=== PATIENT | female | born 1955 | race Caucasian/White ===

== ENCOUNTER 2023-03-29 09:37 | Outpatient (AMB) | payer MEDICARE, MEDICAID, SELFPAY ==
--- NOTE | 2023-03-29 09:45 | A.OFFVIS_ITS ---
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 Davalos for her right knee pain. The patient describes her pain as sharp and severe in nature, /10. Her pain has gotten worse over the last few years in spite of continued non operative treatments. She has done physical therapy for 12 weeks over the last 6 months which aggravated her pain. She has also tried Tylenol and anti-inflammatory medicines which gave her minimal relief. She has had multiple injections. The most recent injection gave her only temporary relief. The patient has difficulty walking even short distances because of her pain. At this point her right knee pain is interfering with her activities of daily living and her ability to sleep well through the night. Allergies amlodipine Allergy (Verified 03/29/23 09:59) Unknown empagliflozin [From Jardiance] Allergy (Verified 03/29/23 09:59) Unknown erythromycin base [From Erythrocin] Allergy (Verified 03/29/23 09:59) Unknown metformin Allergy (Verified 03/29/23 09:59) Unknown oxybutynin Allergy (Verified 03/29/23 09:59) Unknown sulfamethoxazole [From Bactrim] Allergy (Verified 03/29/23 09:59) Unknown trimethoprim [From Bactrim] Allergy (Verified 03/29/23 09:59) Unknown Medication List - Last Reconciled 03/29/23 by Allan Davalos MD candesartan 16 mg PO DAILY chlorthalidone mg PO escitalopram oxalate mg PO glipizide ER 5 mg PO DAILY metoprolol succinate ER 25 mg PO DAILY mirabegron ER (Myrbetriq) 50 mg PO DAILY omeprazole 20 mg PO DAILY rosuvastatin 40 mg PO DAILY semaglutide (Ozempic) 1 mg subcut QWEEK [facility] Social History (Updated 03/29/23 @ 09:57 by Anton Ayers) Alcohol intake: never Patient Tobacco Use Status: Never used Tobacco Physical Exam Const Other: Well-nourished well-developed very friendly female awake alert and oriented x3 in no acute distress Extrem Other: Bilateral lower extremity examination shows good capillary refill, no skin lesions noted, normal sensation light touch Right knee examination shows a minimal effusion, palpable crepitus with range of motion, pain with range of motion, range of motion from -3 degrees to 115 degrees, no instability Results Reviewed Results Reviewed: X-rays of the patient's left knee show end-stage degenerative joint disease with grade 4 [id number] arthritis, subchondral sclerosis, osteophyte formation, no acute bony abnormalities Assessment & Plan Assessment & Plan (1) Arthritis of right knee: Code(s): M17.11 - Unilateral primary osteoarthritis, right knee Plan Ms. Matute presents with progressively worsening right knee pain due to end-stage degenerative joint disease. I had a lengthy discussion with the patient regarding the treatment options. At this point she has failed continued non operative treatments. The risks and benefits of right total knee replacement surgery were discussed at length with the patient. The patient wishes to proceed with surgery. She will contact my office to pick a surgery date. She will follow-up as instructed. Feel free to call me at any time should questions regarding her orthopedic management arise. I spent 22 minutes in reviewing the patient's records and imaging studies, seeing the patient and documenting in the medical record. Orders: Orders XR knee RT 3V Today M25.561 - Pain in right knee Coding Level of Care Code Est Pt Level 2 (93904) Diagnoses Arthritis of right knee M17.11
== END 2023-03-29 10:32 | disposition home or self-care (01) ==
PROVIDERS: Visit Provider Orthopaedic Surgery
DX: M17.11 Unilateral primary osteoarthritis, right knee (principal)
CPT/HCPCS: 99212

== ENCOUNTER 2023-03-29 17:05 | Outpatient (REF) | payer MEDICARE, MEDICAID, SELFPAY ==
--- NOTE | ~2023-03-29 | XR_ITS ---
EXAMINATION: XR KNEE, RIGHT CLINICAL INFORMATION: Pain. COMPARISON: Prior radiographs, most recently 12/09/2022. TECHNIQUE: AP, lateral and sunrise views of the right knee are submitted. FINDINGS: There is mild bony demineralization. There is moderately severe asymmetric narrowing of the medial joint space compartment, and the lateral joint space compartment is well-maintained. There is moderately severe narrowing of the patellofemoral compartment. There is tricompartment peripheral osteophyte formation, most pronounced of the patellofemoral compartment. No fracture or dislocation is seen. There is a small right knee joint effusion. No foreign body is seen. XR/XR knee RT 3V IMPRESSION: 1. There is tricompartment osteoarthritic change of the right knee, most pronounced of the medial and patellofemoral joint space compartments, where degenerative change is moderately severe. 2. There is a small right knee joint effusion.
== END 2023-03-29 17:06 | disposition home or self-care (01) ==
LOC: HO.HOSX 17:05
PROVIDERS: Visit Provider Orthopaedic Surgery
DX: M17.11 Unilateral primary osteoarthritis, right knee (principal)
CPT/HCPCS: 73562; 99212

== ENCOUNTER 2023-09-27 10:04 | Outpatient (REF) | payer MEDICARE, MEDICAID, SELFPAY ==
[2023-09-27 14:55] LABS: Estimated Average Glucose 146 mg/dL; Hemoglobin A1c % 6.7 % (<6.0)
== END 2023-09-27 10:05 | disposition home or self-care (01) ==
LOC: HO.LAB 10:04
PROVIDERS: PCP Physician Assistant; Visit Provider Orthopaedic Surgery
DX: M17.11 Unilateral primary osteoarthritis, right knee (principal); E11.9 Type 2 diabetes mellitus without complications; Z79.899 Other long term (current) drug therapy
CPT/HCPCS: 36415; 83036; 99212

== ENCOUNTER 2023-09-27 10:04 | Outpatient (AMB) | payer MEDICARE, MEDICAID, SELFPAY ==
--- NOTE | 2023-09-27 10:21 | MHC.OFFVIS ---
Intake Vital Signs 09/27/23 10:24 Height 5 ft 2 in Weight 300 lb BMI 54.9 Intake Visit Reasons: Preop RT TKA 10/02/23 Intake Note: Holly is a 67 year old female who presents with complaints of progressively worsening right knee pain. The patient did undergo left total knee replacement surgery in the past. She denies any pain in her left knee. The patient describes her right knee pain as sharp and severe in nature, 04/25. Her pain has gotten worse over the last few years in spite of continued non operative treatments. She has done physical therapy for 12 weeks over the last 6 months which aggravated her pain. She has also tried Tylenol and anti-inflammatory medicines which gave her minimal relief. She has had multiple injections. The most recent injection gave her only temporary relief. The patient has difficulty walking even short distances because of her pain. At this point her right knee pain is interfering with her activities of daily living and her ability to sleep well through the night. The patient continues with her weight loss program. Allergies adhesive tape Allergy (Verified 09/27/23 10:25) Redness of Skin amlodipine Allergy (Verified 09/27/23 10:25) Nausea empagliflozin [From Jardiance] Allergy (Verified 09/27/23 10:25) Abdominal Pain erythromycin base [From Erythrocin] Allergy (Verified 09/27/23 10:25) Abdominal Pain losartan Allergy (Verified 09/27/23 10:25) Headache metformin Allergy (Verified 09/27/23 10:25) Abdominal Pain oxybutynin Allergy (Verified 09/27/23 10:25) Unknown peanut Allergy (Verified 09/27/23 10:25) Swelling sulfamethoxazole [From Bactrim] Allergy (Verified 09/27/23 10:25) Hives trimethoprim [From Bactrim] Allergy (Verified 09/27/23 10:25) Hives Medication List - Last Reconciled 09/27/23 by Allan Davalos MD albuterol sulfate 90 mcg/actuation 2 puffs inhalation QID PRN candesartan 32 mg PO DAILY cholecalciferol (vitamin D3) 10 mcg PO DAILY clotrimazole 1% 1 appl topical BID escitalopram oxalate 30 mg PO DAILY fluticasone furoate-vilanterol 100-25 mcg/dose (Breo Ellipta) 1 ea inhalation DAILY glipizide ER 5 mg PO DAILY lactobacillus combination no.4 (Probiotic) 3,000 mmu cells PO DAILY metoprolol succinate ER 25 mg PO DAILY@1700 mirabegron ER (Myrbetriq) 50 mg PO BEDTIME multivitamin 1 tab PO DAILY omeprazole 20 mg PO DAILY rosuvastatin 40 mg PO DAILY@1700 semaglutide (Ozempic) 2 mg subcut QWEEK [facility] Medical History Hard of hearing Back pain Overactive bladder Bronchitis Edema Hx of lipoma Urinary frequency Osteoporosis Osteopenia Osteoarthritis Sleep apnea Obesity, morbid, BMI 40.0-49.9 Hx of breast cancer HTN (hypertension) Hyperlipidemia GERD (gastroesophageal reflux disease) Polyneuropathy Diabetes Asthma Anxiety Depression Surgical History H/O colonoscopy History of endometrial ablation History of tubal ligation H/O removal of cyst Hx of carpal tunnel repair History of lumpectomy of left breast History of left knee replacement Social History Are you a primary medicare contact specialist to a significant other at home: No Do you presently have visiting nurse or other home services: No Alcohol intake: never Patient Tobacco Use Status: Former Tobacco user 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 , 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 Physical Exam Vital Signs: BMI result Body Mass Index 54.9 Const Other: Well-nourished well-developed very friendly female awake alert and oriented x3 in no acute distress Extrem Other: Bilateral lower extremity examination shows good capillary refill, no skin lesions noted, normal sensation light touch Right knee examination shows a minimal effusion, palpable crepitus with range of motion, pain with range of motion, range of motion from -3 degrees to 115 degrees, no instability Results Reviewed Results Reviewed: X-rays of the patient's right knee show end-stage degenerative joint disease with grade 4 [id number] arthritis, subchondral sclerosis, osteophyte formation, no acute bony abnormalities Assessment & Plan Assessment & Plan (1) Arthritis of right knee: Code(s): M17.11 - Unilateral primary osteoarthritis, right knee Plan Ms. Matute presents with progressively worsening right knee pain due to end-stage degenerative joint disease. I had a lengthy discussion with the patient regarding the treatment options. At this point she has failed continued non operative treatments. The risks and benefits of right total knee replacement surgery were discussed at length with the patient. The patient wishes to proceed with surgery. She has done well after undergoing left total knee replacement surgery in the past. services advisor will be consulted for inpatient rehabilitation at [facility] in [place] following her surgery. The patient went there after her left total knee replacement surgery. Feel free to call me at any time should questions regarding her orthopedic management arise. I spent 22 minutes in reviewing the patient's records and imaging studies, seeing the patient and documenting in the medical record. Orders: Orders Hemoglobin A1c Today E11.9 - Type 2 diabetes mellitus without complications AMB Hemoglobin A1c Today Z13.9 - Encounter for screening, unspecified Coding Level of Care Code Est Pt Level 2 (28446) Diagnoses Arthritis of right knee M17.11
[2023-09-27 10:24] VITALS: BMI 54.9
== END 2023-09-27 10:57 | disposition home or self-care (01) ==
PROVIDERS: PCP Physician Assistant; Visit Provider Orthopaedic Surgery
DX: M17.11 Unilateral primary osteoarthritis, right knee (principal)
CPT/HCPCS: 99024

== ENCOUNTER 2023-10-02 06:10 | Inpatient (IN) | payer MEDICARE, MEDICAID, SELFPAY ==
[2023-09-25 11:57] VITALS: BP 158/67; PULSE 65; RESP 18; O2SAT 95; BMI 55.0
[2023-09-25 14:15] LABS: MRSA Nasal PCR NEGATIVE (Negative); SA Nasal PCR NEGATIVE (Negative)
[2023-10-02] VITALS (15 sets, daily range): BP systolic 154–183; BP diastolic 64–92; PULSE 58–74; RESP 14–18; TEMP 36.3–36.7; O2SAT 93–99; BMI 56.3
[2023-10-02 06:53] LABS: Glucose, Whole Blood 105 mg/dL (60-115)
[2023-10-02] MEDS: Lactated Ringers 1,000 ML 100 ML IVCONT ×2 (07:07→14:20)
--- NOTE | 2023-10-02 07:10 | HO.ANESPROP2 ---
Documented by User: Aneta Churchill NP 09/25/23 12:56 HPI - Anesthesia Eval Consult details Narrative: 68yo F for Right Knee Replacement Total, 10/02/23 Cardiac cleared Medically cleared by [facility] URI late Aug. Resolved except rare dry cough No CP (some anxiety), No SOB with very minimal activity r/t knee pain Asthma. Breo daily. Rescue inhaler <1 x monthly Diabetes. FBS ~130's BMI 55 Anesthesia Pre-Procedure Meds Is the patient on any of the following meds?: Semaglutide (Ozempic) (Last dose 09/23/23) PMFSH Active Problems Active Problems: All Active Problems (Updated 09/25/23 @ 11:39 by Randa Charlton RN) Arthritis of right knee (Acute) Right knee pain (Acute) Past Medical History Medical History Hard of hearing Back pain Overactive bladder Bronchitis Edema Hx of lipoma Urinary frequency Osteoporosis Osteopenia Osteoarthritis Sleep apnea Obesity, morbid, BMI 40.0-49.9 Hx of breast cancer HTN (hypertension) Hyperlipidemia GERD (gastroesophageal reflux disease) Polyneuropathy Diabetes Asthma Anxiety Depression Family History Family history of problems with anesthesia: Unobtainable (Adopted) Surgical History Surgical History H/O colonoscopy History of endometrial ablation History of tubal ligation H/O removal of cyst Hx of carpal tunnel repair History of lumpectomy of left breast History of left knee replacement History of Problems with Anesthesia: No Social History Social History Are you a primary career representative to a significant other at home: No Do you presently have visiting nurse or other home services: No Alcohol intake: never Patient Tobacco Use Status: Former Tobacco user Use of substances other than those prescribed or required for medical reasons: No Have you been hit, kicked, punched, or otherwise hurt by someone within the past year? 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 Meds Allergies Allergy/AdvReac Type Severity Reaction Status Date / Time adhesive tape Allergy Redness of Verified 10/02/23 06:18 Skin amlodipine Allergy Nausea Verified 10/02/23 06:18 empagliflozin Allergy Abdominal Verified 10/02/23 06:18 [From Jardiance] Pain erythromycin base Allergy Abdominal Verified 10/02/23 06:18 [From Erythrocin] Pain losartan Allergy Headache Verified 10/02/23 06:18 metformin Allergy Abdominal Verified 10/02/23 06:18 Pain oxybutynin Allergy Unknown Verified 10/02/23 06:18 peanut Allergy Swelling Verified 10/02/23 06:18 sulfamethoxazole Allergy Hives Verified 10/02/23 06:18 [From Bactrim] trimethoprim [From Bactrim] Allergy Hives Verified 10/02/23 06:18 Home Medications Medication Instructions Recorded Confirmed Last Taken Type escitalopram oxalate 20 mg tablet 30 mg PO DAILY 03/29/23 10/02/23 10/02/23 History glipizide 5 mg tablet, extended 5 mg PO DAILY 03/29/23 10/02/23 10/01/23 History release 24 hr metoprolol succinate 25 mg 25 mg PO DAILY@1700 03/29/23 10/02/23 10/01/23 History tablet,extended release 24 hr mirabegron 50 mg tablet,extended 50 mg PO BEDTIME 03/29/23 10/02/23 10/01/23 History release 24 hr (Myrbetriq) omeprazole 20 mg capsule,delayed 20 mg PO DAILY 03/29/23 10/02/23 10/02/23 History release rosuvastatin 40 mg tablet 40 mg PO DAILY@1700 03/29/23 10/02/23 10/01/23 History albuterol sulfate 90 mcg/actuation 2 puff inhalation QID PRN 09/21/23 10/02/23 Unknown History aerosol inhaler Shortness Of Breath Or Wheezing clotrimazole 1 % topical cream 1 appl topical BID 09/21/23 10/02/23 09/30/23 History fluticasone furoate 100 1 ea inhalation DAILY 09/21/23 10/02/23 10/02/23 History mcg-vilanterol 25 mcg/dose inhalation powder (Breo Ellipta) lactobacillus combination no.4 3 3,000 mmu cells PO DAILY 09/21/23 10/02/23 09/18/23 History billion cell capsule (Probiotic) multivitamin 1 tab PO DAILY 09/21/23 10/02/23 10/01/23 History semaglutide 2 mg/dose (8 mg/3 mL) 2 mg subcut QWEEK 09/25/23 10/02/23 09/23/23 History subcutaneous pen injector (Ozempic) candesartan 32 mg tablet 32 mg PO DAILY 09/27/23 10/02/23 10/01/23 History cholecalciferol (vitamin D3) 10 10 mcg PO DAILY 09/27/23 10/02/23 10/01/23 History mcg (400 unit) capsule Exam Height,Weight and Vital Signs: Height 5 ft 2 in Weight 136.531 kg Last Vital Signs Pulse 65 09/25/23 11:57 Resp 18 09/25/23 11:57 BP 158/67 H 09/25/23 11:57 Pulse Ox 95 09/25/23 11:57 O2 Del Method Room Air 09/25/23 11:57 Airway Mallampati Class: I TM Dist: >3cm Neck ROM: Full Loose/Missing/Broken Teeth: Yes (Molars missing. #11 slight loose) Heart: RRR Lungs: CTAB Assessment and Plan Assessment Anesthesia Assessment: Anesthesia Plan Discussed and PAT Visit Final Anesthetic Review Family History of Problems with Anesthesia: Unobtainable (Adopted) History of Problems with Anesthesia: No Documented by User: Natalie Arana DO 10/02/23 09:09 HPI - Anesthesia Eval Consult details Narrative: 68yo F for Right Knee Replacement Total Cardiac cleared Medically cleared by [facility] URI late Aug. Resolved except rare dry cough No CP (some anxiety), No SOB with very minimal activity r/t knee pain Asthma. Breo daily. Rescue inhaler <1 x monthly Diabetes. FBS ~130's BMI 56 Anesthesia Pre-Procedure Meds If Yes to any meds - educate patient: Pt education - increased risk of aspiration PMFSH Past Medical History Medical History Hard of hearing Back pain Overactive bladder Bronchitis Edema Hx of lipoma Urinary frequency Osteoporosis Osteopenia Osteoarthritis Sleep apnea Obesity, morbid, BMI 40.0-49.9 Hx of breast cancer HTN (hypertension) Hyperlipidemia GERD (gastroesophageal reflux disease) Polyneuropathy Diabetes Asthma Anxiety Depression Surgical History Surgical History H/O colonoscopy History of endometrial ablation History of tubal ligation H/O removal of cyst Hx of carpal tunnel repair History of lumpectomy of left breast History of left knee replacement History of Problems with Anesthesia: No Social History Social History Are you a primary career representative to a significant other at home: No Do you presently have visiting nurse or other home services: No Alcohol intake: never Patient Tobacco Use Status: Former Tobacco user Use of substances other than those prescribed or required for medical reasons: No Have you been hit, kicked, punched, or otherwise hurt by someone within the past year? 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 Meds Allergies Allergy/AdvReac Type Severity Reaction Status Date / Time adhesive tape Allergy Redness of Verified 10/02/23 06:18 Skin amlodipine Allergy Nausea Verified 10/02/23 06:18 empagliflozin Allergy Abdominal Verified 10/02/23 06:18 [From Jardiance] Pain erythromycin base Allergy Abdominal Verified 10/02/23 06:18 [From Erythrocin] Pain losartan Allergy Headache Verified 10/02/23 06:18 metformin Allergy Abdominal Verified 10/02/23 06:18 Pain oxybutynin Allergy Unknown Verified 10/02/23 06:18 peanut Allergy Swelling Verified 10/02/23 06:18 sulfamethoxazole Allergy Hives Verified 10/02/23 06:18 [From Bactrim] trimethoprim [From Bactrim] Allergy Hives Verified 10/02/23 06:18 Home Medications Medication Instructions Recorded Confirmed Last Taken Type escitalopram oxalate 20 mg tablet 30 mg PO DAILY 03/29/23 10/02/23 10/02/23 History glipizide 5 mg tablet, extended 5 mg PO DAILY 03/29/23 10/02/23 10/01/23 History release 24 hr metoprolol succinate 25 mg 25 mg PO DAILY@1700 03/29/23 10/02/23 10/01/23 History tablet,extended release 24 hr mirabegron 50 mg tablet,extended 50 mg PO BEDTIME 03/29/23 10/02/23 10/01/23 History release 24 hr (Myrbetriq) omeprazole 20 mg capsule,delayed 20 mg PO DAILY 03/29/23 10/02/23 10/02/23 History release rosuvastatin 40 mg tablet 40 mg PO DAILY@1700 03/29/23 10/02/23 10/01/23 History albuterol sulfate 90 mcg/actuation 2 puff inhalation QID PRN 09/21/23 10/02/23 Unknown History aerosol inhaler Shortness Of Breath Or Wheezing clotrimazole 1 % topical cream 1 appl topical BID 09/21/23 10/02/23 09/30/23 History fluticasone furoate 100 1 ea inhalation DAILY 09/21/23 10/02/23 10/02/23 History mcg-vilanterol 25 mcg/dose inhalation powder (Breo Ellipta) lactobacillus combination no.4 3 3,000 mmu cells PO DAILY 09/21/23 10/02/23 09/18/23 History billion cell capsule (Probiotic) multivitamin 1 tab PO DAILY 09/21/23 10/02/23 10/01/23 History semaglutide 2 mg/dose (8 mg/3 mL) 2 mg subcut QWEEK 09/25/23 10/02/23 09/23/23 History subcutaneous pen injector (Ozempic) candesartan 32 mg tablet 32 mg PO DAILY 09/27/23 10/02/23 10/01/23 History cholecalciferol (vitamin D3) 10 10 mcg PO DAILY 09/27/23 10/02/23 10/01/23 History mcg (400 unit) capsule Exam Exam Date and Time: October 02, 2023 0710 Height,Weight and Vital Signs: Height 5 ft 2 in Weight 136.531 kg Last Vital Signs Pulse 65 09/25/23 11:57 Resp 18 09/25/23 11:57 BP 158/67 H 09/25/23 11:57 Pulse Ox 95 09/25/23 11:57 O2 Del Method Room Air 09/25/23 11:57 Height 5 ft 2 in Weight 139.525 kg Vital Signs Pulse Rate 65 09/25/23 11:57 Respiratory Rate 18 09/25/23 11:57 Blood Pressure 158/67 H 09/25/23 11:57 Pulse Oximetry 95 09/25/23 11:57 Oxygen Delivery Method Room Air 09/25/23 11:57 Temperature 97.3 F 10/02/23 06:45 Pulse Rate 64 10/02/23 06:45 Respiratory Rate 16 10/02/23 06:45 Blood Pressure 180/80 H 10/02/23 06:45 Pulse Oximetry 98 10/02/23 06:45 Oxygen Delivery Method Room Air 10/02/23 06:45 Airway Mallampati Class: I TM Dist: >3cm Neck ROM: Full Heart: S1S2 Assessment and Plan Assessment Anesthesia Assessment: Anesthesia Plan Discussed Final Anesthetic Review History of Problems with Anesthesia: No NPO: Yes ASA Class: III Final Preanesthetic Review: No Changes in Pt Med Stat, Meds/Allgs Chart Reviewed, Consent Obtained/Reviewed and Anes Risks/Benef Reviewed Patient Risk: Intermediate Procedure Risk: Intermediate Assessment/Block/Sedation in SS: Assess/Block/Sedation-SS Anesthetic Plan Anesthetic Plan: MAC:, Spinal, Regional Block (right adductor canal and right ipack block) and Agree w/ Assess. and Plan Disposition: Standard PACU
[2023-10-02] MEDS: vancomycin/NS 2,000 MG/500 ML PLAST..BAG 250 MG IV ×2 (07:11→18:30)
--- NOTE | 2023-10-02 07:28 | PC.NURSE ---
Patient has past allergy to Erythromycin Base PO, causing severe abdominal pain. IV Vancomycin ordered preop. This nurse spoke to Michaelle in the pharmacy who stated that there shouldn't be a problem with the IV Vanco, but to keep a close eye on the patient. Dr. Davalos made aware and agrees with plan. Patient aware. IV Vancomycin started in preop. OR nurse made aware.
--- NOTE | 2023-10-02 10:41 | P.BOP_ITS ---
Brief Operative Note Date of Service: 10/02/23 Pre-op diagnosis: Right knee degenerative joint disease Post-op diagnosis: same Procedure: Right total knee arthroplasty Implants: [place] [employer] cemented posterior stabilized total knee arthroplasty with a femoral component size 4 right, universal tibial component size 5, tibial stem size 12 mm in diameter by 50 mm in length, polyethylene liner size 5 with 9 mm of thickness, an asymmetric patellar component size 32 with 10 mm of thickness Surgeon: Allan Davalos MD Anesthesia: regional and spinal Was an Securities Compliance Examiner used for this Procedure?: Yes Securities Compliance Examiner: Maryann Alston Estimated blood loss (mL): 200 Pathology: other (Bony fragments from the right femur, tibia and patella) Condition: stable Disposition: PACU
--- NOTE | 2023-10-02 10:43 | P.OP_ITS ---
Operative Note Operative Note Date of Service: 10/02/23 Narrative: After the patient was identified as Holly Matute and her right knee was initialed by myself the patient was brought to the holding area where a right leg nerve block was performed by the anesthesiologist in routine fashion. The patient was then brought to the operating room where conscious sedation and spinal anesthesia were performed by the anesthesiologist in routine fashion. Because of the patient's diabetes and obesity she was given both IV Ancef and IV vancomycin preoperatively for infection prophylaxis. The patient's right lower extremity was prepped and draped in sterile fashion. A formal time-out was completed. The patient's right knee was placed onto a small bump to produce 30? of knee flexion during exposure. A #10 scalpel blade was used to make a midline incision extending 1 handbreadth proximal and distal to the patella. A second #10 scalpel blade was used to dissect the subcutaneous tissues down to the extensor mechanism. The subcutaneous flaps were maintained as thick as possible . A medial parapatellar arthrotomy was then performed using a #10 scalpel blade. The arthrotomy was begun just medial to the patellar tendon. The arthrotomy was continued 1 cm medial to the patella and then 5 mm into the medial aspect of the quadriceps tendon. The infrapatellar fat pad was partially excised to help with exposure. The soft tissue retinaculum was raised one-half of the way around the medial aspect of the proximal tibia. The patella was everted and the knee was flexed to 90?. There was no injury to the patellar tendon or its insertion onto the tibial tubercle. A drill bit was introduced into the distal aspect of the femur with a starting point 1 cm anterior to the origin of the posterior cruciate ligament. The intramedullary alignment juvencio was put into place. The distal alignment guide was set for a 5 degree valgus cut. The distal cutting block was put into place and was held with 4 pins. The intramedullary alignment juvencio was removed. Soft tissues were retracted in the distal femoral cut was made using a sagittal saw. The distal aspect of the femur measured to be a size 4 right component. Two drill holes were placed into the distal aspect of the femur marking 3? of external rotation. The distal cutting block was impacted into place and was held with 2 pins. Soft tissues were retracted and the 4 distal femoral cuts were made using a sagittal saw. Fi nal notching and drilling of the distal aspect of the femur were performed in routine fashion. The trial femoral component was impacted into place. The knee was taken through a full range of motion. The patella tracked well. The patella was everted and the knee was flexed to 90?. The trial component was removed and our attention was directed to the proximal tibia. The medial and lateral menisci were removed using a #10 scalpel blade. A small rim of the medial meniscus was left intact to help prevent injury to the medial collateral ligament. A drill bit was then introduced into the proximal tibia with a starting point midway from medial to lateral and one-third of the way posteriorly. The intramedullary alignment juvencio was put into place. The proximal tibial cutting guide was placed over the alignment juvencio in line with the 2nd toe. The guide was held in place using 3 pins. The intramedullary alignment juvencio was removed. Soft tissues were retracted and the proximal tibial cut was made using a sagittal saw. Inspection of the proximal tibia showed a bony cyst measuring 5 mm x 5 mm x 10 mm along the medial tibial plateau. Because of the presence of the cyst and the patient's obesity the decision was made to use a tibial stem to help prevent loosening of the tibial component in the future. The proximal tibia measured to be a size 5 component. The tibial tray was put into place with a 9 mm liner. The femoral component was impacted into place. The knee was taken through a full range of motion. There was full flexion and full extension. There was no instability with varus or valgus stress testing with the knee in flexion or extension. The patella tracked well with no medially directed force. The rotation of the tibial tray was marked using electrocautery with the knee in extension. The patella was everted and the knee was flexed to 90?. All trial components were removed. The tibial tray was placed onto the proximal tibia in line with the electrocautery erika. The tray was held in place using 3 pins. Final broaching and drilling of the proximal tibia were performed in routine fashion. The trial liner and trial femoral component were put into place. The knee was brought into extension and our attention was directed to the patella. The patella measured 25 mm in thickness. The patellar resection guide was set for a 10 mm resection. Soft tissues were retracted and the patella cut was made using a sagittal saw. The remaining patella measured 15 mm in thickness. The undersurface of the patella was measured to be a size 32 asymmetric component. Three drill holes were placed into the undersurface of the patella in routine fashion. The trial component was put into place. The knee was taken through a full range of motion. The patella tracked well. The patella was everted and the knee was flexed to 90?. All trial components were removed. The knee was once again brought into extension and placed onto a small bump. The knee joint was irrigated with copious amounts of normal saline solution via pulse lavage while the cement was mixed. The patella was everted and the knee was flexed to 90?. A small amount of cement was placed along the posterior aspects of the tibial and femoral components. Cement was then pressurized into the proximal tibia. The tibial component was impacted into place. Any excess cement was removed. The polyethylene liner was then impacted into place. Cement was then pressurized into the distal aspect of the femur. A small amount of cement was placed into the intramedullary canal to help reduce b leeding. The femoral component was impacted into place. Any excess cement was removed. The knee was then brought into extension. Cement was pressurized into the undersurface of the patella. The patellar component was put into place and was held with a patella clamp. Any excess cement was removed. Once the cement had hardened the patellar clamp was removed. The knee was taken through a full range of motion. There was full flexion and extension. There was no instability with varus or valgus stress testing with the knee in flexion or extension. The patella tracked well with no medially directed force. The knee joint was irrigated with copious amounts of normal saline solution via pulse lavage. Any significant bleeding vessels were coagulated. The patient's right knee was placed onto a small bump. The arthrotomy was closed with #2 Ethibond [id number] interrupted suture as well as #1 Vicryl [id number] interrupted suture. The wound was once again irrigated. The subcutaneous tissues were closed with 0 Vicryl and 2-0 Vicryl interrupted sutures. The skin was closed with skin pam. Dry sterile dressing and Shadi bandages were placed over the patient's right knee. The patient was awake and alert. The patient was transferred to the recovery room in stable condition.
--- NOTE | 2023-10-02 13:00 | P.CONIM_ITS ---
History of Present Illness Data of Consult Service Date: 10/02/23 Primary Care Provider: GUILLAUME Hayden HPI Reason for consult: dm 68F PMH HTN, T2DM,?morbid obesity, HLD, GERD, asthma, anxiety/depression,?NAZANIN?u sing CPAP, peripheral edema, history of left breast cancer in 2019 status post lumpectomy, osteoporosis, and urinary frequency admitted s/p right knee arthroplasty for osteoarthritis. medical consult requested to manage comorbidities. Review of Systems Review of Systems: Yes all other systems are reviewed and are negative [facility] Medical History Hard of hearing Back pain Overactive bladder Bronchitis Edema Hx of lipoma Urinary frequency Osteoporosis Osteopenia Osteoarthritis Sleep apnea Obesity, morbid, BMI 40.0-49.9 Hx of breast cancer HTN (hypertension) Hyperlipidemia GERD (gastroesophageal reflux disease) Polyneuropathy Diabetes Asthma Anxiety Depression Surgical History H/O colonoscopy History of endometrial ablation History of tubal ligation H/O removal of cyst Hx of carpal tunnel repair History of lumpectomy of left breast History of left knee replacement Social History Are you a primary career services assistant to a significant other at home: No Do you presently have visiting nurse or other home services: No Alcohol intake: never Patient Tobacco Use Status: Former Tobacco user Use of substances other than those prescribed or required for medical reasons: No Have you been hit, kicked, punched, or otherwise hurt by someone within the past year? 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 Meds Allergies Allergy/AdvReac Type Severity Reaction Status Date / Time adhesive tape Allergy Redness of Verified 10/02/23 06:18 Skin amlodipine Allergy Nausea Verified 10/02/23 06:18 empagliflozin Allergy Abdominal Verified 10/02/23 06:18 [From Jardiance] Pain erythromycin base Allergy Abdominal Verified 10/02/23 06:18 [From Erythrocin] Pain losartan Allergy Headache Verified 10/02/23 06:18 metformin Allergy Abdominal Verified 10/02/23 06:18 Pain oxybutynin Allergy Unknown Verified 10/02/23 06:18 peanut Allergy Swelling Verified 10/02/23 06:18 sulfamethoxazole Allergy Hives Verified 10/02/23 06:18 [From Bactrim] trimethoprim [From Bactrim] Allergy Hives Verified 10/02/23 06:18 Active Medications: Current Medications Acetaminophen (Acetaminophen 325 Mg Tablet) 650 mg PO Q6H PRN PRN Reason: Pain, Mild (Pain Scale 1-3) Albuterol Sulfate (Albuterol Sulfate 90 Mcg 8 Gm Inhaler) 2 puff INHALE QID PRN PRN Reason: Shortness Of Breath Or Wheezing Aspirin (Aspirin 325 Mg Tablet) 325 mg PO BID LATONYA Celecoxib (Celecoxib 200 Mg Capsule) 200 mg PO BID LATONYA Clotrimazole (Clotrimazole 1 % Cream 15 Gm Tube) 1 appl TOPICAL BID LATONYA; Protocol Docusate Sodium (Docusate Sodium 100 Mg Capsule) 100 mg PO BID [facility] Escitalopram Oxalate (Escitalopram Oxalate 10 Mg Tablet) 30 mg PO DAILY [facility] Fluticasone/Vilanterol (Fluticasone/Vilanterol 100/25 Blst.W.Dev) puff INHALE DAILY [facility] Gabapentin (Gabapentin 100 Mg Capsule) 100 mg PO BEDTIME [facility]ONYA Glipizide (Glipizide Xl 5 Mg Tab.Er.24) 5 mg PO DAILY [facility] Hydromorphone HCl (Hydromorphone Hcl 0.5 Mg/0.5 Ml Syringe) 0.25 mg IVPUSH Q5M PRN; Protocol PRN Reason: Pain, Severe (Pain Scale 7-10) Stop: 10/02/23 15:09 Hydromorphone HCl (Hydromorphone Hcl 0.5 Mg/0.5 Ml Syringe) 0.25 mg IVPUSH Q4H PRN; Protocol PRN Reason: Pain, Severe (Pain Scale 7-10) Hydromorphone HCl (Hydromorphone Hcl 0.5 Mg/0.5 Ml Syringe) 0.5 mg IVPUSH Q4H PRN; Protocol PRN Reason: Pain, Severe (Pain Scale 7-10) Lactated Ringer's (Lr) 1,000 mls @ 100 mls/hr IVCONT .Q10H [facility] Cefazolin Sodium 3 gm/ Sodium (Chloride) 100 mls @ 200 mls/hr IV POSTOP ONE Stop: 10/02/23 13:23 Vancomycin HCl (Vancomycin/Ns) 2,000 mg in 500 mls @ 250 mls/hr IV Q8H [facility] Methocarbamol (Methocarbamol 500 Mg Tablet) 500 mg PO TID [facility] Metoprolol Succinate (Metoprolol Succinate Er 25 Mg Tab.Er.24h) 25 mg PO DAILY@1700 [facility]; Protocol Mirabegron (Mirabegron 50 Mg Tab.Er.24h) 50 mg PO BEDTIME [facility] Multivitamins/Vitamin C (Multivitamin Tablet) 1 tab PO DAILY [facility] Non-Formulary Medication (Candesartan) 32 mg PO DAILY [facility] Non-Formulary Medication (Lactobacillus Combination No.4 [Probiotic]) 3,000 mmu cells PO DAILY [facility] Non-Formulary Medication (Rosuvastatin) 40 mg PO DAILY@1700 [facility] Non-Formulary Medication (Semaglutide [Ozempic]) 2 mg SUBCUT QWEEK [facility] Omeprazole (Omeprazole 20 Mg Capsule.Dr) 20 mg PO DAILY [facility] Ondansetron HCl (Ondansetron Hcl 4 Mg/2 Ml Vial) 4 mg IVPUSH ONCE PRN PRN Reason: Nausea and Vomiting Stop: 10/02/23 15:11 Ondansetron HCl (Ondansetron Hcl 4 Mg/2 Ml Vial) 4 mg IVPUSH Q8H PRN PRN Reason: Nausea and Vomiting Oxycodone HCl (Oxycodone Hcl Immed Release 5 Mg Tablet) 5 mg PO Q4H PRN PRN Reason: Pain, Moderate(Pain Scale 4-6) Oxycodone HCl (Oxycodone Hcl Er 10 Mg Tab.Er.12h) 10 mg PO BID [facility] Oxycodone HCl (Oxycodone Hcl Immed Release 5 Mg Tablet) 10 mg PO Q4H PRN PRN Reason: Pain, Moderate(Pain Scale 4-6) Pharmacy Consult (Consult Rx Vancomycin Dosing) 1 each MISCELLANE DAILY PRN PRN Reason: Consult order Stop: 10/02/23 23:55 Sodium Chloride (0.9 % Sodium Chloride Flush 3 Ml Syringe) 3 ml IVFLUSH QSHIFT [facility] Vitamin D (Cholecalciferol (Vitamin D3) 10 Mcg Tablet) 10 mcg PO DAILY [facility] Home Medications Medication Instructions Recorded Confirmed Last Taken Type escitalopram oxalate 20 mg tablet 30 mg PO DAILY 03/29/23 10/02/23 10/02/23 History glipizide 5 mg tablet, extended 5 mg PO DAILY 03/29/23 10/02/23 10/01/23 History release 24 hr metoprolol succinate 25 mg 25 mg PO DAILY@1700 03/29/23 10/02/23 10/01/23 History tablet,extended release 24 hr mirabegron 50 mg tablet,extended 50 mg PO BEDTIME 03/29/23 10/02/23 10/01/23 History release 24 hr (Myrbetriq) omeprazole 20 mg capsule,delayed 20 mg PO DAILY 03/29/23 10/02/23 10/02/23 History release rosuvastatin 40 mg tablet 40 mg PO DAILY@1700 03/29/23 10/02/23 10/01/23 History albuterol sulfate 90 mcg/actuation 2 puff inhalation QID PRN 09/21/23 10/02/23 Unknown History aerosol inhaler Shortness Of Breath Or Wheezing clotrimazole 1 % topical cream 1 appl topical BID 09/21/23 10/02/23 09/30/23 History fluticasone furoate 100 1 ea inhalation DAILY 09/21/23 10/02/23 10/02/23 History mcg-vilanterol 25 mcg/dose inhalation powder (Breo Ellipta) lactobacillus combination no.4 3 3,000 mmu cells PO DAILY 09/21/23 10/02/23 09/18/23 History billion cell capsule (Probiotic) multivitamin 1 tab PO DAILY 09/21/23 10/02/23 10/01/23 History semaglutide 2 mg/dose (8 mg/3 mL) 2 mg subcut QWEEK 09/25/23 10/02/23 09/23/23 History subcutaneous pen injector (Ozempic) candesartan 32 mg tablet 32 mg PO DAILY 09/27/23 10/02/23 10/01/23 History cholecalciferol (vitamin D3) 10 10 mcg PO DAILY 09/27/23 10/02/23 10/01/23 History mcg (400 unit) capsule Physical Exam Vital Signs and Narrative: Vital Signs: Last Vital Signs Temp 97.5 F 10/02/23 12:45 Pulse 63 10/02/23 12:45 Resp 15 10/02/23 12:45 BP 167/76 H 10/02/23 12:45 Pulse Ox 94 10/02/23 12:45 O2 Del Method Room Air 10/02/23 12:45 O2 Flow Rate 2 10/02/23 11:45 BMI result Body Mass Index 56.3 General: AO X 3, no acute distress Resp: CTA bilateral, no accessory muscles used CVS: S1,S2,RRR GI: soft, non tender, non distended Neuro: motor grossly intact, alert Psych: appropriate affect, appropriate insight Results Labs Labs: Laboratory Results - last 24 hr 10/02/23 06:47 POC Glucose 105 Assessment and Plan (1) Diabetes: Status: Acute Plan 68F PMH HTN, T2DM,?morbid obesity, HLD, GERD, asthma, anxiety/depression,?NAZANIN?using CPAP, peripheral edema, history of left breast cancer in 2019 status post lumpectomy, osteoporosis, and urinary frequency admitted s/p right knee arthroplasty for osteoarthritis OA s/p right knee arthroplasty management per primary team DM continue glipizide monitor poc, insulin sliding scale morbid obesity weight loss recommended NAZANIN cpap at night htn metoprolol mood disorder lexapro dvt prophylaxis - asa bid full code thank you for consult, will sign off, please recall if needed
--- NOTE | 2023-10-02 13:11 | PC.NURSE ---
Dr. Davalos made aware that patient only received 2 grams of preop Cefazolin, not 3 grams. Orders in for both of these doses. MD aware, No new orders at this time.
[2023-10-02 13:27] LABS: MRSA Nasal PCR NEGATIVE (Negative); SA Nasal PCR NEGATIVE (Negative)
[2023-10-02] MEDS: oxyCODONE HCl ER 10 MG TAB.ER.12H PO ×2 (13:31→23:14)
[2023-10-02] MEDS: oxyCODONE HCl Immed Release 5 MG TABLET 10 MG PO ×2 (13:31→17:58)
[2023-10-02] MEDS: Celecoxib 200 MG CAPSULE PO ×2 (13:31→20:43)
[2023-10-02] MEDS: methocarbamoL 500 MG TABLET PO ×2 (13:31→20:43)
[2023-10-02] MEDS: Docusate Sodium 100 MG CAPSULE PO ×2 (13:31→20:43)
[2023-10-02] MEDS: Acetaminophen 325 MG TABLET 650 MG PO (13:31)
[2023-10-02 15:54] LABS: Glucose, Whole Blood 187 mg/dL (60-115)
[2023-10-02] MEDS: ceFAZolin Sodium 3 GM in 0.9 % Sodium Chloride 100 ML IV (16:55)
[2023-10-02] MEDS: Aspirin 325 MG TABLET PO (17:01)
[2023-10-02] MEDS: Metoprolol Succinate ER 25 MG TAB.ER.24H PO (17:03)
[2023-10-02] MEDS: Multivitamin TABLET 1 TAB PO (17:05)
[2023-10-02] MEDS: Cholecalciferol (Vitamin D3) 10 MCG TABLET PO (17:07)
[2023-10-02] MEDS: Insulin Lispro 100 UNIT/ML 3 ML VIAL SUBCUT ×2 (17:19→20:50)
[2023-10-02] MEDS: Mirabegron 50 MG TAB.ER.24H PO (19:39)
[2023-10-02] MEDS: Gabapentin 100 MG CAPSULE PO (19:39)
[2023-10-02] MEDS: HYDROmorphone HCl 0.5 MG/0.5 ML SYRINGE 0.25 MG IVPUSH (19:39)
[2023-10-02 20:43] LABS: Glucose, Whole Blood 189 mg/dL (60-115)
[2023-10-03] VITALS (8 sets, daily range): BP systolic 140–149; BP diastolic 60–68; PULSE 69–80; RESP 16–18; TEMP 36.2–36.8; O2SAT 93–96
[2023-10-03] MEDS: HYDROmorphone HCl 0.5 MG/0.5 ML SYRINGE 0.25 MG IVPUSH ×2 (01:43→08:00)
[2023-10-03] MEDS: Lactated Ringers 1,000 ML 100 ML IVCONT ×2 (03:04→14:44)
[2023-10-03 06:04] LABS: MANUAL DIFF FLAG NO
[2023-10-03 06:11] LABS: Hematocrit 34.4 % (37.0-47.0); Hemoglobin 11.3 g/dl (12.0-16.0); Mean Corpuscular HGB Conc 32.8 g/dl (31.0-35.0); Mean Corpuscular Hemoglobin 28.4 pg (27.0-33.0); Mean Corpuscular Volume 86.4 fL (80.0-98.0); Platelet Count 194 X10*3/uL (160-400); Red Blood Count 3.98 X10*6/uL (4.20-5.50); White Blood Count 10.4 X10*3/uL (4.8-10.8)
[2023-10-03 06:12] LABS: Basophils Percent Auto 0.2 % (0-2); Eosinophils Percent Auto 0.2 % (0-4); Hematocrit 33.6 % (37.0-47.0); Hemoglobin 11.1 g/dl (12.0-16.0); Imm Gran Abs Auto 0.05 X10*3/uL (0.00-0.03); Imm Gran Pct Auto 0.5 % (0.0-0.4); Lymphocytes Absolute Auto 2.2 X10*3/uL (1.2-4.9); Lymphocytes Percent Auto 20.3 % (20-40); Mean Corpuscular Hemoglobin 28.4 pg (27.0-33.0); Mean Corpuscular Volume 85.9 fL (80.0-98.0); Mean Platelet Volume 11.1 fL (9.4-12.3); Monocytes Absolute Auto 1.1 X10*3/uL (0.1-1.2); Monocytes Percent Auto 10.3 % (2-11); Neutrophils Absolute Auto 7.4 x10*3/uL (2.0-8.3); Neutrophils Percent Auto 68.5 % (45-73); Platelet Count 195 X10*3/uL (160-400); Red Blood Count 3.91 X10*6/uL (4.20-5.50); White Blood Count 10.8 X10*3/uL (4.8-10.8)
[2023-10-03 06:23] LABS: Anion Gap 10 (12-20); Blood Urea Nitrogen 17 mg/dL (9-16); Calcium 8.5 mg/dL (8.4-10.2); Carbon Dioxide 25 mmol/L (22-29); Chloride 110 mmol/L (96-108); Creatinine Clr Calc Pharmacy 77.3; Estimated Glomerular Filt Rate 57; Glucose Fasting 161 mg/dL (60-99); Potassium 3.7 mmol/L (3.3-5.1); Sodium 141 mmol/L (135-145)
[2023-10-03 07:50] LABS: Glucose, Whole Blood 143 mg/dL (60-115)
[2023-10-03] MEDS: oxyCODONE HCl ER 10 MG TAB.ER.12H PO ×2 (07:58→20:11)
[2023-10-03] MEDS: Cholecalciferol (Vitamin D3) 10 MCG TABLET PO (07:58)
[2023-10-03] MEDS: Aspirin 325 MG TABLET PO ×2 (07:59→20:12)
[2023-10-03] MEDS: Celecoxib 200 MG CAPSULE PO ×2 (07:59→20:11)
[2023-10-03] MEDS: Multivitamin TABLET 1 TAB PO (07:59)
[2023-10-03] MEDS: Escitalopram Oxalate 10 MG TABLET 30 MG PO (07:59)
[2023-10-03] MEDS: Valsartan 160 MG TABLET PO (07:59)
[2023-10-03] MEDS: methocarbamoL 500 MG TABLET PO ×3 (07:59→20:12)
[2023-10-03] MEDS: Docusate Sodium 100 MG CAPSULE PO ×2 (07:59→20:12)
[2023-10-03] MEDS: Omeprazole 20 MG CAPSULE.DR PO (08:00)
[2023-10-03] MEDS: Fluticasone/Vilanterol 100/25 BLST.W.DEV 1 PUFF INHALE (08:15)
[2023-10-03] MEDS: Acetaminophen 325 MG TABLET 650 MG PO (09:03)
[2023-10-03] MEDS: glipiZIDE XL 2.5 MG TAB.ER.24 5 MG PO (09:03)
[2023-10-03 11:24] LABS: Glucose, Whole Blood 180 mg/dL (60-115)
[2023-10-03] MEDS: Insulin Lispro 100 UNIT/ML 3 ML VIAL SUBCUT (11:47)
--- NOTE | 2023-10-03 12:08 | HO.POSTANES ---
Post Anesthesia Evaluation Post Anesthesia Evaluation Date of Service: 10/03/23 Vital Signs: Vital Signs Temp Pulse Resp BP Pulse Ox O2 Del Method 10/03/23 09:09 95 Room Air 10/03/23 08:18 80 18 10/03/23 08:00 18 10/03/23 07:42 97.8 F 69 18 149/68 H 96 Room Air 10/03/23 03:51 97.2 F 78 18 140/60 H 95 Room Air 10/03/23 03:16 97.2 F 71 18 140/60 H 93 Room Air Anesthesia: Spinal and Nerve Block Mental Status: Awake Pain Control: Satisfactory (pain 7/10) Nausea/Vomiting: None Hydration: Adequate Anesthesia-Related Issues: No Anes. Related Issues
[2023-10-03] MEDS: oxyCODONE HCl Immed Release 5 MG TABLET 10 MG PO ×2 (13:08→17:08)
--- NOTE | 2023-10-03 13:55 | MHC.CM.PN ---
IMM 10/03/23 DELIVERED TO BEDSIDE, PT S/P RTKA, PT REPORTS SHE LIVES W/ JUAN J, HAS A 4PRONGED CANE, FWW, ROLLATER, TOILET RISER AND SHOWER CHAIR AND GRAB BARS, PT IS INDEP W/CARE AT BASELINE AND DENIES HAVING HOME SERVICES, PT REPORT SHE WOULD LIKE TO GO TO [facility] HOWEVER PER PT SHE WILL LIKELY BE ABLE TO DC HOME W/SERVICES, P.T. WILL REVIST W/PT IN AM. PT VERIFIES PCP ON FILE IS CORRECT AND HAS BEEN EDUCATED ON AND COMPLETED A HCP NAMING HER JUAN J [phone] HER HCA AND HER DTR MALDONADO [phone] HER ALTERNATE, COPY UPLOADED TO [facility] AND PLACED IN PAPER CHART. ANTIC DC TOMORROW 10/02 HOME W/NEW [facility] AND FAMILY FOR TRANSPORT
--- NOTE | 2023-10-03 14:21 | P.PNOP_ITS ---
Subjective Subjective Date of Service: 10/03/23 Interval history: POD 1 s/p RT TKA no overnight events resting in bed Physical Exam Vital Signs: Vital Signs: Last Vital Signs Temp 97.8 F 10/03/23 07:42 Pulse 80 10/03/23 08:18 Resp 18 10/03/23 08:18 BP 149/68 H 10/03/23 07:42 Pulse Ox 95 10/03/23 09:09 O2 Del Method Room Air 10/03/23 09:09 O2 Flow Rate 2 10/02/23 11:45 BMI result Body Mass Index 56.3 Const: General: cooperative, healthy appearing and no acute distress Resp: Effort & Inspection: normal respiratory effort and able to speak in complete sentences Cardio: Rate: regular rate Peripheral pulses: Peripheral pulses 2+ throughout GI: Palpation (GI): Soft to palpation Skin: General skin exam: no rashes or lesions noted Extrem: Other: incision clean dry and intact. [place] intact. No erythema or joint effusion. Calf supple nontender. Neurovascularly intact. Procedures Date of Service Date of Service: 10/03/23 Progress Note: A&P Assessment and plan (1) Status post total right knee replacement: Status: Acute Assessment and Plan: * Continue pain mgmnt * Begin Aspirin for dvt ppx * begin PT for RT TKA * Dispo planning-Pending PT eval, pain mgmnt Need for continued inpatient stay: PT eval Time Spent With Patient Time: Total time managing care of this patient today ____ minutes. Quality Stroke Does the patient have a stroke diagnosis?: No VTE Prior VTE?: No VTE Risk Level:: Surgical - very high VTE Device Contraindication: N/A - Device Ordered VTE Drug Contraindication: N/A - Med Ordered
--- NOTE | 2023-10-03 14:24 | P.DS_ITS ---
DS: Providers Provider Date of Service: 10/03/23 Date of admission: 10/02/23 06:10 Primary care physician: GUILLAUME Hayden Consults: 10/02/23 12:54 Consult to Hospitalist Routine Comment: Consulting Provider: Hospitalist Reason For Exam: routine medical management DMII DS: Diagnosis Discharge Diagnosis (1) Status post total right knee replacement: Status: Acute DS: Summary Hospital Course Hospital Course: The patient underwent a successful Right total knee arthroplasty on 10/02/[address] Davalos, was transferred to PACU and then to the floor to recover. During their stay, their vitals were stable. Labs were unremarkable, H/H 10.1/31.1. POD 1 she was started on ASA for DVT ppx, they also received Physical Therapy services twice a day. Physical therapy should include gait training, ROM to tolerance and quad strength. She is WBAT. Prior to discharge, incision clean dry and intact,. The Aquacel dressing should remain intact and dry at all times. Any concerns with the dressing, please contact orthopedic office. No showering. The plan is to be discharged home with vna Time Attestation Discharge Coordination Time (in mins): 30 Quality: Safe Use of Opioids Does Pt have an Active Cancer Diagnosis on the Problem List?: No Quality: Stroke Does the patient have a stroke diagnosis?: No Physical Exam Vital Signs: Vital Signs: Last Vital Signs Temp 97.8 F 10/03/23 07:42 Pulse 80 10/03/23 08:18 Resp 18 10/03/23 08:18 BP 149/68 H 10/03/23 07:42 Pulse Ox 95 10/03/23 09:09 O2 Del Method Room Air 10/03/23 09:09 O2 Flow Rate 2 10/02/23 11:45 BMI result Body Mass Index 56.3 DS: Data Data Completed and Pending Pending studies at discharge: Pending at discharge 10/02/23 08:56 Surgical [PTH] Routine Labs on day of discharge: Laboratory Results - last 24 hr 10/02/23 10/02/23 10/03/23 15:48 20:25 05:38 WBC 10.4 RBC Hgb Hct MCV MCH MCHC RDW Plt Count MPV Immature Gran % (Auto) Neut % (Auto) Lymph % (Auto) Reagan % (Auto) Eos % (Auto) Baso % (Auto) Lymph # (Auto) Reagan # (Auto) Eos # (Auto) Baso # (Auto) Abs Immat Gran (auto) Absolute Neuts (auto) Absolute Nucleated RBC Nucleated RBC % (auto) Sodium Potassium Chloride Carbon Dioxide Anion Gap BUN Creatinine Estim Creat Clear Calc Estimated GFR POC Glucose 187 H 189 H Fasting Glucose Calcium 10/03/23 10/03/23 10/03/23 05:38 05:38 05:38 WBC 10.8 RBC 3.98 L 3.91 L Hgb 11.3 L 11.1 L Hct 34.4 L MCV MCH MCHC RDW Plt Count MPV Immature Gran % (Auto) Neut % (Auto) Lymph % (Auto) Reagan % (Auto) Eos % (Auto) Baso % (Auto) Lymph # (Auto) Reagan # (Auto) Eos # (Auto) Baso # (Auto) Abs Immat Gran (auto) Absolute Neuts (auto) Absolute Nucleated RBC Nucleated RBC % (auto) Sodium Potassium Chloride Carbon Dioxide Anion Gap BUN Creatinine Estim Creat Clear Calc Estimated GFR POC Glucose Fasting Glucose Calcium 10/03/23 10/03/23 10/03/23 05:38 05:38 05:38 WBC RBC Hgb Hct 33.6 L MCV 86.4 85.9 MCH 28.4 28.4 MCHC 32.8 RDW Plt Count MPV Immature Gran % (Auto) Neut % (Auto) Lymph % (Auto) Reagan % (Auto) Eos % (Auto) Baso % (Auto) Lymph # (Auto) Reagan # (Auto) Eos # (Auto) Baso # (Auto) Abs Immat Gran (auto) Absolute Neuts (auto) Absolute Nucleated RBC Nucleated RBC % (auto) Sodium Potassium Chloride Carbon Dioxide Anion Gap BUN Creatinine Estim Creat Clear Calc Estimated GFR POC Glucose Fasting Glucose Calcium 10/03/23 10/03/23 10/03/23 05:38 05:38 05:38 WBC RBC Hgb Hct MCV MCH MCHC 33.0 RDW 14.0 14.0 Plt Count 194 195 MPV 11.0 Immature Gran % (Auto) Neut % (Auto) Lymph % (Auto) Reagan % (Auto) Eos % (Auto) Baso % (Auto) Lymph # (Auto) Reagan # (Auto) Eos # (Auto) Baso # (Auto) Abs Immat Gran (auto) Absolute Neuts (auto) Absolute Nucleated RBC Nucleated RBC % (auto) Sodium Potassium Chloride Carbon Dioxide Anion Gap BUN Creatinine Estim Creat Clear Calc Estimated GFR POC Glucose Fasting Glucose Calcium 10/03/23 10/03/23 10/03/23 05:38 05:38 05:38 WBC RBC Hgb Hct MCV MCH MCHC RDW Plt Count MPV 11.1 Immature Gran % (Auto) 0.5 H Neut % (Auto) 68.5 Lymph % (Auto) 20.3 Reagan % (Auto) 10.3 Eos % (Auto) 0.2 Baso % (Auto) 0.2 Lymph # (Auto) 2.2 Reagan # (Auto) 1.1 Eos # (Auto) 0.0 Baso # (Auto) 0.0 Abs Immat Gran (auto) 0.05 H Absolute Neuts (auto) 7.4 Absolute Nucleated RBC 0.000 0.000 Nucleated RBC % (auto) 0.0 0.0 Sodium 141 Potassium 3.7 Chloride 110 H Carbon Dioxide 25 Anion Gap 10 L BUN 17 H Creatinine 0.97 Estim Creat Clear Calc 77.3 Estimated GFR 57 POC Glucose Fasting Glucose 161 H Calcium 8.5 10/03/23 10/03/23 07:41 11:15 WBC RBC Hgb Hct MCV MCH MCHC RDW Plt Count MPV Immature Gran % (Auto) Neut % (Auto) Lymph % (Auto) Reagan % (Auto) Eos % (Auto) Baso % (Auto) Lymph # (Auto) Reagan # (Auto) Eos # (Auto) Baso # (Auto) Abs Immat Gran (auto) Absolute Neuts (auto) Absolute Nucleated RBC Nucleated RBC % (auto) Sodium Potassium Chloride Carbon Dioxide Anion Gap BUN Creatinine Estim Creat Clear Calc Estimated GFR POC Glucose 143 H 180 H Fasting Glucose Calcium Discharge Plan Discharge Anticipated Discharge Date/Time: 10/05/23 09:33 Patient Disposition: Xfer SNF Discharge Diagnosis: LT TKA Referrals: [facility] [Outside] - 1 Day (SHORT TERM REHAB) Maryann Alston PA-C [Physician Dairy Quality Assurance Officer] - 2 Weeks (10/19/23 12:30 [facility] Orthopedic Surgeons Maryann Alston PA-C) Discharge Medications: New celecoxib 200 mg Capsule 200 mg PO BID 30 Days Qty: 60 0RF acetaminophen 325 mg Tablet 650 mg PO Q6H PRN (Reason: Pain, Mild (Pain Scale 1-3)) 30 Days Qty: 240 0RF aspirin 325 mg Tablet 325 mg PO BID 42 Days Qty: 84 0RF docusate sodium 100 mg Capsule 100 mg PO BID 14 Days Qty: 28 0RF gabapentin 100 mg Capsule 100 mg PO BEDTIME 7 Days Qty: 7 0RF oxycodone 5 mg Tablet 5 mg PO Q4H PRN (Reason: Pain, Moderate(Pain Scale 4-6)) 7 Days Qty: 42 0RF Rx Instructions: Partial Fill upon patient request. Continued multivitamin Tablet 1 tab PO DAILY albuterol sulfate 90 mcg/actuation HFA aerosol inhaler 2 puff inhalation QID PRN (Reason: Shortness Of Breath Or Wheezing) clotrimazole 1 % cream 1 appl topical BID fluticasone furoate-vilanterol [Breo Ellipta] 100-25 mcg/dose blister with device 1 ea inhalation DAILY Probiotic 3 billion cell Capsule 3,000 mmu cells PO DAILY Rx Instructions: administer with a meal Ozempic 2 mg/dose (8 mg/3 mL) pen injector 2 mg subcut QWEEK Patient Comments: patient takes every Monday omeprazole 20 mg capsule,delayed release(DR/EC) 20 mg PO DAILY metoprolol succinate 25 mg tablet extended release 24 hr 25 mg PO DAILY@1700 escitalopram oxalate 20 mg tablet 30 mg PO DAILY rosuvastatin 40 mg tablet 40 mg PO DAILY@1700 glipizide 5 mg tablet extended release 24hr 5 mg PO DAILY Myrbetriq 50 mg tablet extended release 24 hr 50 mg PO BEDTIME candesartan 32 mg tablet 32 mg PO DAILY cholecalciferol (vitamin D3) 10 mcg (400 unit) capsule 10 mcg PO DAILY Discharge Orders: Discharge Order (Routine); Ordered 10/05/23 Ordered By: Hilario Beard Diet: Regular diet Activity on Discharge: Use cane or walker Stand Alone Forms: Patient Portal Discharge page Care Plan Goals: Restore function of joint Health Concerns: none Plan of Treatment: Physical Therapy for Total knee arthroplasty: WBAT, gait training, ROM 0-12, qu ad strength * Limit stair climbing * No showering, no tub bath-keep dressing clean, dry and intact * No driving x6 weeks * Continue Aspirin twice a day x 6 weeks * Follow up with [facility] Orthopedics in 2 weeks: * --you will also have your first out patient PT eval on the day of your post op appt-so please plan on being in the office that day for an extended period of time. Assessment: Physical Therapy Pain management DVT prophylaxis
[2023-10-03 16:25] LABS: Glucose, Whole Blood 141 mg/dL (60-115)
[2023-10-03] MEDS: Metoprolol Succinate ER 25 MG TAB.ER.24H PO (17:08)
[2023-10-03] MEDS: Gabapentin 100 MG CAPSULE PO (20:11)
[2023-10-03] MEDS: Mirabegron 50 MG TAB.ER.24H PO (20:11)
[2023-10-03 20:38] LABS: Glucose, Whole Blood 149 mg/dL (60-115)
[2023-10-04] MEDS: Lactated Ringers 1,000 ML 100 ML IVCONT (00:20)
[2023-10-04 03:47] VITALS: BP 148/66; PULSE 69; RESP 19; TEMP 36.8; O2SAT 91
[2023-10-04] MEDS: oxyCODONE HCl Immed Release 5 MG TABLET 10 MG PO ×3 (03:48→12:14)
[2023-10-04 06:42] LABS: MANUAL DIFF FLAG NO
[2023-10-04 06:50] LABS: Basophils Percent Auto 0.5 % (0-2); Eosinophils Absolute Auto 0.3 X10*3/uL (0.0-0.4); Eosinophils Percent Auto 2.9 % (0-4); Hematocrit 31.7 % (37.0-47.0); Hemoglobin 10.5 g/dl (12.0-16.0); Imm Gran Abs Auto 0.04 X10*3/uL (0.00-0.03); Imm Gran Pct Auto 0.5 % (0.0-0.4); Lymphocytes Absolute Auto 2.3 X10*3/uL (1.2-4.9); Lymphocytes Percent Auto 26.6 % (20-40); Mean Corpuscular HGB Conc 33.1 g/dl (31.0-35.0); Mean Corpuscular Hemoglobin 29.1 pg (27.0-33.0); Mean Corpuscular Volume 87.8 fL (80.0-98.0); Monocytes Absolute Auto 1.1 X10*3/uL (0.1-1.2); Monocytes Percent Auto 12.3 % (2-11); Neutrophils Absolute Auto 4.9 x10*3/uL (2.0-8.3); Neutrophils Percent Auto 57.2 % (45-73); Platelet Count 164 X10*3/uL (160-400); Red Blood Count 3.61 X10*6/uL (4.20-5.50); Red Cell Distribution Width 14.6 % (11.0-16.0); White Blood Count 8.6 X10*3/uL (4.8-10.8)
[2023-10-04 07:07] LABS: Anion Gap 10 (12-20); Blood Urea Nitrogen 14 mg/dL (9-16); Calcium 8.5 mg/dL (8.4-10.2); Carbon Dioxide 28 mmol/L (22-29); Chloride 108 mmol/L (96-108); Creatinine Clr Calc Pharmacy 86.2; Estimated Glomerular Filt Rate > 60; Glucose Fasting 134 mg/dL (60-99); Potassium 3.6 mmol/L (3.3-5.1); Sodium 142 mmol/L (135-145)
[2023-10-04] MEDS: Acetaminophen 325 MG TABLET 650 MG PO (07:20)
[2023-10-04] MEDS: Fluticasone/Vilanterol 100/25 BLST.W.DEV 1 PUFF INHALE (07:50)
[2023-10-04 07:53] VITALS: PULSE 78; RESP 18
[2023-10-04 08:00] VITALS: BP 150/68; PULSE 73; RESP 18; TEMP 37; O2SAT 92
[2023-10-04 08:02] LABS: Glucose, Whole Blood 130 mg/dL (60-115)
[2023-10-04] MEDS: Aspirin 325 MG TABLET PO ×2 (08:17→20:29)
[2023-10-04] MEDS: Omeprazole 20 MG CAPSULE.DR PO (08:18)
[2023-10-04] MEDS: Multivitamin TABLET 1 TAB PO (08:18)
[2023-10-04] MEDS: Docusate Sodium 100 MG CAPSULE PO ×2 (08:18→20:28)
[2023-10-04] MEDS: oxyCODONE HCl ER 10 MG TAB.ER.12H PO ×2 (08:19→20:29)
[2023-10-04] MEDS: glipiZIDE XL 2.5 MG TAB.ER.24 5 MG PO (08:19)
[2023-10-04] MEDS: Valsartan 160 MG TABLET PO (08:19)
[2023-10-04] MEDS: Escitalopram Oxalate 10 MG TABLET 30 MG PO (08:19)
[2023-10-04] MEDS: methocarbamoL 500 MG TABLET PO ×3 (08:19→20:29)
[2023-10-04] MEDS: Celecoxib 200 MG CAPSULE PO ×2 (08:20→20:28)
[2023-10-04] MEDS: Cholecalciferol (Vitamin D3) 10 MCG TABLET PO (08:20)
[2023-10-04 09:00] VITALS: O2SAT 92
--- NOTE | 2023-10-04 10:36 | MHC.CM.PN ---
CM MET W/PT AND AT BEDSIDE TO DISCUSS DISPO [facility] IS UNABLE TO ACCEPT PT PT IS DOING TOO WELL AND PT RECOMMENDING HOME W/SERVICES, PT AND PT'S ARE VERY INSISTENT SHE NEEDS TO GO TO A REHAB FACILITY AND IS CONCERNED ABOUT PT'S AND SAFETY AND FALLING AND REPORTING SHE ALMOST FELL DOWN THE STAIRS YESTERDAY HOWEVER PT AND ORTHO WERE THERE AND REPORT PT DID WELL ON THE STAIRS. PT'S NURSE DID COME TO OFFICE AFTER CM LEFT AND REPORTED PT'S AGAIN C/O PT ALMOST FALLING DOWN THE STAIRS HOWEVER PER PT'S NURSE PT REPORTED THAT IN FACT SHE DID NOT ALMOST FALL DOWN THE STAIRS. PT DOES HAVE MEDICARE AND MEDICAID AND PT/ AGREEABLE TO BROAD LOCAL SNF REFERRAL FOR RESPITE BED W/PT BILLED OUTPT, REF PLACED. WHILE WRITING THIS NOTE, A NURSE CAME INTO OFFICE REPORTING WAS UPSET AND THAT HE CALLED [facility] AND THEY TAKE PT'S INSURANCE AND THERE SHOULDN'T BE A PROBLEM, THEN CAME OUT AGAING REPORTING TO PT'S NURSE PT IS YELLOW AND PT'S NURSE HAS ASSESSED PT.
[2023-10-04 11:46] LABS: Glucose, Whole Blood 177 mg/dL (60-115)
[2023-10-04] MEDS: Insulin Lispro 100 UNIT/ML 3 ML VIAL SUBCUT (12:14)
--- NOTE | 2023-10-04 15:01 | MHC.CM.PN ---
CM MET W/PT TO DISCUSS DISPO AND REVIEW BED OFFERS, [facility], [facility] AND [facility] ALL OF WHICH HAVE NO BED AVAILABLE UNTIL TOMORROW 10/04, PT REPORTS SHE PREFERS [facility] IT IS ONLY 9 MIN FROM HER DTRS HOUSE, PT APPEARS TO ACCEPT AND UNDERSTAND THAT WE ARE NOT ABLE TO GET HER INTO [facility] AND DC PLAN WILL BE [facility] TOMORROW AT 1PM, PT PREBOOKED W/[facility] WHO REPORT PT WILL NEED AMBULANCE STRETCHER THEY DO NOT LIKELY HAVE A LARGE WIDE WC TO ACCOMMODATE PT IN WC VAN.
[2023-10-04 15:05] VITALS: BP 142/74; PULSE 78; RESP 16; TEMP 36.5; O2SAT 93
[2023-10-04] MEDS: 0.9 % Sodium Chloride Flush 3 ML SYRINGE IVFLUSH (15:19)
[2023-10-04 16:30] LABS: Glucose, Whole Blood 143 mg/dL (60-115)
[2023-10-04] MEDS: Metoprolol Succinate ER 25 MG TAB.ER.24H PO (16:36)
[2023-10-04 20:00] VITALS: BP 145/66; PULSE 79; RESP 16; TEMP 36.4; O2SAT 93
[2023-10-04] MEDS: Mirabegron 50 MG TAB.ER.24H PO (20:29)
[2023-10-04] MEDS: Gabapentin 100 MG CAPSULE PO (20:29)
[2023-10-04 20:37] LABS: Glucose, Whole Blood 149 mg/dL (60-115)
--- NOTE | 2023-10-04 21:32 | P.PNOP_ITS ---
Subjective Subjective Date of Service: 10/04/23 Interval history: POD 2 s/p RT TKA no overnight events resting in bed Physical Exam Vital Signs: Vital Signs: Last Vital Signs Temp 97.6 F 10/04/23 20:00 Pulse 79 10/04/23 20:00 Resp 16 10/04/23 20:00 BP 145/66 H 10/04/23 20:00 Pulse Ox 93 10/04/23 20:00 O2 Del Method Room Air 10/04/23 20:00 O2 Flow Rate 2 10/02/23 11:45 BMI result Body Mass Index 56.3 Const: General: cooperative, healthy appearing and no acute distress Resp: Effort & Inspection: normal respiratory effort and able to speak in complete sentences Cardio: Rate: regular rate Peripheral pulses: Peripheral pulses 2+ throughout GI: Palpation (GI): Soft to palpation Skin: General skin exam: no rashes or lesions noted Extrem: Other: incision clean dry and intact. [place] intact. No erythema or joint effusion. Calf supple nontender. Neurovascularly intact. Procedures Date of Service Date of Service: 10/04/23 Progress Note: A&P Assessment and plan (1) Status post total right knee replacement: Status: Acute Assessment and Plan: * Continue pain mgmnt * continue Aspirin for dvt ppx * continue PT for RT TKA * Dispo planning-Pending rehab placement Time Spent With Patient Time: Total time managing care of this patient today ____ minutes. Quality Stroke Does the patient have a stroke diagnosis?: No VTE Prior VTE?: No VTE Risk Level:: Surgical - very high VTE Device Contraindication: N/A - Device Ordered VTE Drug Contraindication: N/A - Med Ordered
[2023-10-05] MEDS: 0.9 % Sodium Chloride Flush 3 ML SYRINGE IVFLUSH ×2 (00:45→09:34)
[2023-10-05 03:14] VITALS: BP 155/67; PULSE 70; RESP 20; TEMP 36.3; O2SAT 91
[2023-10-05 06:31] LABS: MANUAL DIFF FLAG NO
[2023-10-05 06:38] LABS: Basophils Absolute Auto 0.1 X10*3/uL (0.0-0.2); Basophils Percent Auto 0.7 % (0-2); Eosinophils Absolute Auto 0.4 X10*3/uL (0.0-0.4); Eosinophils Percent Auto 5.3 % (0-4); Hematocrit 31.1 % (37.0-47.0); Hemoglobin 10.1 g/dl (12.0-16.0); Imm Gran Abs Auto 0.03 X10*3/uL (0.00-0.03); Imm Gran Pct Auto 0.4 % (0.0-0.4); Lymphocytes Absolute Auto 2.4 X10*3/uL (1.2-4.9); Lymphocytes Percent Auto 32.9 % (20-40); Mean Corpuscular HGB Conc 32.5 g/dl (31.0-35.0); Mean Corpuscular Hemoglobin 28.9 pg (27.0-33.0); Mean Corpuscular Volume 88.9 fL (80.0-98.0); Mean Platelet Volume 10.8 fL (9.4-12.3); Monocytes Absolute Auto 0.7 X10*3/uL (0.1-1.2); Monocytes Percent Auto 10.3 % (2-11); Neutrophils Absolute Auto 3.6 x10*3/uL (2.0-8.3); Neutrophils Percent Auto 50.4 % (45-73); Platelet Count 169 X10*3/uL (160-400); Red Cell Distribution Width 14.6 % (11.0-16.0); White Blood Count 7.2 X10*3/uL (4.8-10.8)
[2023-10-05 06:58] LABS: Anion Gap 12 (12-20); Blood Urea Nitrogen 16 mg/dL (9-16); Calcium 8.5 mg/dL (8.4-10.2); Carbon Dioxide 27 mmol/L (22-29); Chloride 108 mmol/L (96-108); Creatinine Clr Calc Pharmacy 93.8; Estimated Glomerular Filt Rate > 60; Glucose Fasting 147 mg/dL (60-99); Potassium 3.7 mmol/L (3.3-5.1); Sodium 143 mmol/L (135-145)
[2023-10-05 07:30] VITALS: BP 129/60; PULSE 73; RESP 18; TEMP 36; O2SAT 94
[2023-10-05 07:40] LABS: Glucose, Whole Blood 131 mg/dL (60-115)
[2023-10-05 09:00] VITALS: O2SAT 94
--- NOTE | 2023-10-05 09:25 | MHC.CM.PN ---
EMR reviewed. Per Ortho PA patient is medically cleared for dc and now requesting home w/ services. This CM spoke with patient and . Plan is home w/ [facility], to transport. [facility] aware.
[2023-10-05] MEDS: Fluticasone/Vilanterol 100/25 BLST.W.DEV 1 PUFF INHALE (09:31)
[2023-10-05] MEDS: oxyCODONE HCl ER 10 MG TAB.ER.12H PO (09:32)
[2023-10-05] MEDS: Cholecalciferol (Vitamin D3) 10 MCG TABLET PO (09:33)
[2023-10-05] MEDS: Docusate Sodium 100 MG CAPSULE PO (09:33)
[2023-10-05] MEDS: Escitalopram Oxalate 10 MG TABLET 30 MG PO (09:33)
[2023-10-05] MEDS: Celecoxib 200 MG CAPSULE PO (09:33)
[2023-10-05] MEDS: Omeprazole 20 MG CAPSULE.DR PO (09:33)
[2023-10-05] MEDS: Valsartan 160 MG TABLET PO (09:33)
[2023-10-05] MEDS: Multivitamin TABLET 1 TAB PO (09:33)
[2023-10-05] MEDS: Aspirin 325 MG TABLET PO (09:33)
[2023-10-05] MEDS: methocarbamoL 500 MG TABLET PO (09:33)
--- NOTE | 2023-10-05 09:34 | P.F2F_ITS ---
Service Date Service Date: 10/05/23 Encounter Date of encounter: 10/05/23 Reasons for Services Signs and symptoms assessed: Weakness, poor balance, poor gait mechanics Reason for physical therapy: home safety and mobility, therapeutic exercises, restore joint function, gait/transfer training, ADL training and energy conservation Reason for occupational therapy: home safety and mobility, therapeutic exercises, restore joint function, gait/transfer training, ADL training and energy conservation Homebound: Leaving the home is medically contraindicated at this time without the asist of a device and/or another person due th the listed conditions above and below. Reason homebound: unsteady gait / fall risk, pain with ambulation, poor balance / fall risk and unable to drive Homebound supporting statement: Pt. is considered home bound due to recent surgery. Unable to drive, poor balance, poor gait mechanics. Certification: Based on the above findings, I certify that this patient is confined to the home and needs intermittent assisted care, physical therapy and/or speech therapy, or continues to need occupational therapy. The patient is under my care, and I have initiated the establishment of the plan of care. The patient will be followed by a physician who will periodically review the plan of care. Time Spent With Patient Time: Total time managing care of this patient today ____ minutes.
[2023-10-05 09:39] VITALS: PULSE 71; RESP 20; O2SAT 92
[2023-10-05] MEDS: glipiZIDE XL 2.5 MG TAB.ER.24 5 MG PO (10:17)
== END 2023-10-05 11:25 | disposition home health service (06) | DRG 470 ==
LOC: HO.SSSA 06:45 → HO.S3 11:48
PROVIDERS: Internal Medicine; Nurse Practitioner; Orthopaedic Surgery; Admitting Provider Physician Assistant; PCP Physician Assistant; Visit Provider Physician Assistant
PROC: 0SRC0J9 Replacement of Right Knee Joint with Synthetic Substitute, Cemented, Open Approach (ICD-10-PCS; CPT 27447; principal; 2023-10-02 07:30)
DX: M17.11 Unilateral primary osteoarthritis, right knee (principal); Z68.43 Body mass index [BMI] 50.0-59.9, adult; G89.18 Other acute postprocedural pain; E78.5 Hyperlipidemia, unspecified; I10 Essential (primary) hypertension; K21.9 Gastro-esophageal reflux disease without esophagitis; J45.909 Unspecified asthma, uncomplicated; G47.33 Obstructive sleep apnea (adult) (pediatric); E66.01 Morbid (severe) obesity due to excess calories; F39 Unspecified mood [affective] disorder; Z79.51 Long term (current) use of inhaled steroids; Z79.84 Long term (current) use of oral hypoglycemic drugs; Z79.899 Other long term (current) drug therapy
CPT/HCPCS: 27447; 36415; 80048; 82947; 85025; 85027; 86850; 86900; 86901; 87640; 87641; 88305; 88311; 94640; 97110; 97116; 97162; 97530; C1776; J0131; J0665; J0690; J1100; J1170; J2250; J2704; J2795; J3010; J3370; J7120

== ENCOUNTER → 2023-10-02 06:10 | Outpatient (BNV) | payer MEDICARE, MEDICAID, SELFPAY | PROVIDERS: Admitting Provider Physician Assistant; PCP Physician Assistant; Visit Provider Internal Medicine | DX: E11.9 Type 2 diabetes mellitus without complications (principal); Z79.4 Long term (current) use of insulin | CPT/HCPCS: 99222 ==

== ENCOUNTER → 2023-10-02 06:10 | Outpatient (BNV) | payer MEDICARE, MEDICAID, SELFPAY | PROVIDERS: Admitting Provider Physician Assistant; PCP Physician Assistant; Visit Provider Orthopaedic Surgery | DX: Z47.1 Aftercare following joint replacement surgery (principal); Z96.651 Presence of right artificial knee joint | CPT/HCPCS: 27447; 99024; G0180 ==

== ENCOUNTER 2023-10-19 09:06 | Outpatient (REF) | payer MEDICARE, MEDICAID, SELFPAY ==
--- NOTE | ~2023-10-19 | XR_ITS ---
EXAMINATION: XR KNEE, RIGHT CLINICAL INFORMATION: Pain. COMPARISON: Prior radiographs, most recently 03/29/2023. TECHNIQUE: Lateral and axial views of the right knee are submitted, together with AP upright view of the bilateral knees. FINDINGS: Prosthetic components of the bilateral total knee arthroplasties are appropriately aligned. No periprosthetic fracture. There are anterior right knee skin pam. A small right knee joint effusion is present. XR/XR knee RT 3V IMPRESSION: Appropriate alignment of the bilateral total knee arthroplasties, without evidence of complications.
== END 2023-10-19 09:07 | disposition home or self-care (01) ==
LOC: HO.HOSX 09:06
PROVIDERS: Visit Provider Physician Assistant
DX: Z47.1 Aftercare following joint replacement surgery (principal); Z96.653 Presence of artificial knee joint, bilateral
CPT/HCPCS: 73562; 99212

== ENCOUNTER 2023-10-19 12:17 | Outpatient (AMB) | payer MEDICARE, MEDICAID, SELFPAY ==
--- NOTE | 2023-10-19 12:28 | A.OFFVIS_ITS ---
Intake Intake Visit Reasons: PO-LT TKA 10/02/23 Intake Note: Holly is a 68 year old female who presents today for a post op appointment s/p LT TKA 10/02/23 Patient reports she is doing very well. She states that she is about to use the stairs and move a little bit more. Allergies adhesive tape Allergy (Verified 10/02/23 06:18) Redness of Skin amlodipine Allergy (Verified 10/02/23 06:18) Nausea empagliflozin [From Jardiance] Allergy (Verified 10/02/23 06:18) Abdominal Pain erythromycin base [From Erythrocin] Allergy (Verified 10/02/23 06:18) Abdominal Pain losartan Allergy (Verified 10/02/23 06:18) Headache metformin Allergy (Verified 10/02/23 06:18) Abdominal Pain oxybutynin Allergy (Verified 10/02/23 06:18) Unknown peanut Allergy (Verified 10/02/23 06:18) Swelling sulfamethoxazole [From Bactrim] Allergy (Verified 10/02/23 06:18) Hives trimethoprim [From Bactrim] Allergy (Verified 10/02/23 06:18) Hives HPI PO-LT TKA 10/02/23 DR AGUERO Details 68-year-old female who presents in the o ffice today 17 days status post right total knee arthroplasty, which was performed on 10/02/[address] Davalos. Patient reports she is doing very well. She reports she is going to increase her activities, like use of stairs. [facility] Medical History Hard of hearing Back pain Overactive bladder Bronchitis Edema Hx of lipoma Urinary frequency Osteoporosis Osteopenia Osteoarthritis Sleep apnea Obesity, morbid, BMI 40.0-49.9 Hx of breast cancer HTN (hypertension) Hyperlipidemia GERD (gastroesophageal reflux disease) Polyneuropathy Diabetes Asthma Anxiety Depression Surgical History H/O colonoscopy History of endometrial ablation History of tubal ligation H/O removal of cyst Hx of carpal tunnel repair History of lumpectomy of left breast History of left knee replacement Social History Household Members: Spouse Housing: House Are you a primary ocular care technician to a significant other at home: No Do you presently have visiting nurse or other home services: No Alcohol intake: never Patient Tobacco Use Status: Former Tobacco user service: No 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 [place] intact. No surrounding erythema or drainage. No signs of infection. ROM is 0-90 degrees. NVI. Assessment & Plan Assessment & Plan (1) Status post total right knee replacement: Code(s): Z96.651 - Presence of right artificial knee joint Plan Ms. Matute is a 68-year-old female who presents in the office today 17 days status post right total knee arthroplasty, which was performed on 10/02/[address] Davalos. Patient reports she is doing very well. She reports she is going to increase her activities, like use of stairs. [place] were removed and steri-stripes were applied. Patient will continue to work with physical therapy. Follow up will be in [address] Davalos, or sooner if needed. Patient lost steri-stripes while using the restroom in the office today. She was returned to an exam room where new stripes were applied. X-rays of the right knee which were obtained while in the office today and were reviewed by me, Maryann Alston PA-C, revealed intact orthopedic hardware with routine healing. Current pain regiment: -Acetaminophen 650 mg PO Q6H PRN -Oxycodone 5 mg PO Q6H PRN, Patient Instructions: Scribed by Hailma Le medical office specialist, for Maryann Alston PA-C on 10/19/2023 at 12:36 pm, EST. Coding Level of Care Code Global (85336) Diagnoses Status post total right knee replacement Z96.651
== END 2023-10-19 13:15 | disposition home or self-care (01) ==
PROVIDERS: PCP Physician Assistant; Visit Provider Physician Assistant
DX: Z96.651 Presence of right artificial knee joint (principal)
CPT/HCPCS: 99024

== ENCOUNTER 2023-11-16 11:28 | Outpatient (AMB) | payer MEDICARE, MEDICAID, SELFPAY ==
--- NOTE | 2023-11-16 11:34 | A.OFFVIS_ITS ---
Intake Visit Reasons: PO-6wk LT TKA 10/02/23 Intake Note: Holly is a 68 year old female who presents for her post operative appointment s/p Right TKA on 10/02/23 Patient reports she is doing well until bedtime. She is still having some pain at bedtime. She does take oxycodone at night to help her sleep. She denies any fevers or chills. She continues with her exercise program. She walks with a cane when she is out of her home. Allergies adhesive tape Allergy (Verified 10/02/23 06:18) Redness of Skin amlodipine Allergy (Verified 10/02/23 06:18) Nausea empagliflozin [From Jardiance] Allergy (Verified 10/02/23 06:18) Abdominal Pain erythromycin base [From Erythrocin] Allergy (Verified 10/02/23 06:18) Abdominal Pain losartan Allergy (Verified 10/02/23 06:18) Headache metformin Allergy (Verified 10/02/23 06:18) Abdominal Pain oxybutynin Allergy (Verified 10/02/23 06:18) Unknown peanut Allergy (Verified 10/02/23 06:18) Swelling sulfamethoxazole [From Bactrim] Allergy (Verified 10/02/23 06:18) Hives trimethoprim [From Bactrim] Allergy (Verified 10/02/23 06:18) Hives Medication List - Last Reconciled 11/16/23 by Allan Davalos MD acetaminophen 650 mg (2 x 325 mg) PO Q6H PRN 30 days albuterol sulfate 90 mcg/actuation 2 puffs inhalation QID PRN amoxicillin 2,000 mg (4 x 500 mg) PO ONCE 1 day aspirin 325 mg PO BID 42 days candesartan 32 mg PO DAILY celecoxib 200 mg PO BID 30 days cholecalciferol (vitamin D3) 10 mcg PO DAILY clotrimazole 1% 1 appl topical BID docusate sodium 100 mg PO BID 14 days escitalopram oxalate 30 mg PO DAILY fluticasone furoate-vilanterol 100-25 mcg/dose (Breo Ellipta) 1 ea inhalation DAILY gabapentin 100 mg PO BEDTIME 7 days glipizide ER 5 mg PO DAILY lactobacillus combination no.4 (Probiotic) 3,000 mmu cells PO DAILY metoprolol succinate ER 25 mg PO DAILY@1700 mirabegron ER (Myrbetriq) 50 mg PO BEDTIME multivitamin 1 tab PO DAILY omeprazole 20 mg PO DAILY oxycodone 5 mg PO Q6H PRN 7 days rosuvastatin 40 mg PO DAILY@1700 semaglutide (Ozempic) 2 mg subcut QWEEK PFSH Medical History (Updated 10/13/23 @ 00:02 by Ino Aldana) Hard of hearing Back pain Overactive bladder Bronchitis Edema Hx of lipoma Urinary frequency Osteoporosis Osteopenia Osteoarthritis Sleep apnea Obesity, morbid, BMI 40.0-49.9 Hx of breast cancer HTN (hypertension) Hyperlipidemia GERD (gastroesophageal reflux disease) Polyneuropathy Diabetes Asthma Anxiety Depression Surgical History (Updated 11/16/23 @ 11:40 by Helena Arshad CMA) Hx of right knee surgery (~10/02/23) H/O colonoscopy History of endometrial ablation History of tubal ligation H/O removal of cyst Hx of carpal tunnel repair History of lumpectomy of left breast History of left knee replacement Social History Household Members: Spouse Housing: House Are you a primary hearing care practitioner to a significant other at home: No Do you presently have visiting nurse or other home services: No Alcohol intake: never Patient Tobacco Use Status: Former Tobacco user service: No 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 Matute continues very well after undergoing right total knee replacement surgery on 10/02/2023. She will continue with her physical therapy exercises. She does know to take antibiotics before any dental work. She will contact me prior to her follow-up appointment in 8 weeks should any questions or concerns arise. Call me at any time should questions regarding her orthopedic management arise. Medications: Changed From oxycodone Partial Fill upon patient request. 5 mg PO Q6H 7 days PRN 28 tabs 0RF Pain, Moderate(Pain Scale 4-6) To oxycodone Partial Fill upon patient request. 5 mg PO Q8H PRN 30 tabs 0RF pain 10 days Coding Level of Care Code Global (02271) Diagnoses Right knee pain M25.561
== END 2023-11-16 11:58 | disposition home or self-care (01) ==
PROVIDERS: PCP Physician Assistant; Visit Provider Orthopaedic Surgery
DX: M25.561 Pain in right knee (principal)
CPT/HCPCS: 99024

== ENCOUNTER → 2023-11-16 11:28 | Outpatient (BNVA) | payer MEDICARE, MEDICAID, SELFPAY | PROVIDERS: PCP Physician Assistant; Visit Provider Orthopaedic Surgery | DX: M25.561 Pain in right knee (principal) | CPT/HCPCS: 99212 ==

== ENCOUNTER 2023-12-15 08:00 | Outpatient (RCR) | payer MEDICARE, MEDICAID, SELFPAY ==
--- NOTE | 2023-11-03 08:53 | MHC.PT.EP ---
[facility] [place] Office [place] Office [place] Office [address] Meliza Simpson [address] [phone] F: [phone] F: [phone] F: [phone] F: [phone] Physical Therapy Plan of Care Date of Evaluation: 11/03/23 Date of Surgery: 10/02/23 Diagnosis: R TKA on 10/02/23 (RL) Assessment: pt is a 68 y/o female presenting to physical therapy w/ referring diagnosis of R TKA. Impairments include pain, decreased range of motion, decreased strength, impaired functional mobility, impaired postural awareness, and altered ambulation mechanics. pt is a good candidate for skilled PT due to age, potential remediation of impairments, typical disease/condition progression and prognosis, comorbidities, and motivation. pt would benefit from skilled PT intervention to provide a tailored strengthening and stretching exercise program, functional training, gait training, postural re-training, neuromuscular re-education, modalities as needed for pain, equipment safety demonstration. Frequency and Duration: The patient will be seen 2x/wk for 6 wks Short Term Goals: pt will be I w/ HEP to promote self-management of condition. pt will improve R knee extension strength to 5/5 to promote ease in sit<>stand transfers. Supervisor Aircraft Maintenance Goals: pt will report a statistically significant improvement in self-reported outcome measure, LEFI, to promote return to PLOF. pt will ascend/descend 4 stairs using railing w/ reciprocal pattern to promote ease in entering/exiting home. Treatment Plan: Modalities to reduce pain, spasms and effusion. Manual therapy to restore motion and function. Therapeutic exercise to improve strength and flexibility. Neuromuscular re-education for posture and balance. Therapeutic activities to return to functional activities of daily living. Electronically signed by: Jayde Elizabeth PT, DPT Please sign and return to therapist. Thank you for your referral.
--- NOTE | 2024-01-05 07:51 | MHC.PT.DC ---
[facility] [place] Office [place] Office [place] Office [address] Meliza Simpson 140 [facility] [phone] F: [phone] F: [phone] F: [phone] F: [phone] Physical Therapy Discharge Report Diagnosis: R TKA on 10/02/23 (RL) Date of Surgery: 10/02/23 Date of Evaluation: 11/03/23 Date of Discharge: 01/05/24 Treatments to Date: 12 Cancellations to Date: 2 No Shows to Date: 0 Discharge Status: Improved Function Independent with HEP Discharge Summary: The patient overall has made significant improvements in her knee range of motion, lower extremity strength, and tolerance for functional activities. She is ambulating short distances without a cane and longer distances with a cane. The patient feels at this time she can continue with her exercises at home and is to be discharged from this plan of care. I will keep her chart open for three weeks. If I have not heard from her in that time I will discharge the chart. Electronically signed by: Jayde Elizabeth PT, DPT Please sign and return to therapist. Thank you for your referral.
== END 2024-01-05 07:51 | disposition home or self-care (01) ==
LOC: HO.PT 08:00
PROVIDERS: PCP Physician Assistant; Visit Provider Physician Assistant
DX: Z96.651 Presence of right artificial knee joint (principal)
CPT/HCPCS: 97110; 97112; 97140; 97162; 97530

== ENCOUNTER 2024-01-22 08:42 | Outpatient (AMB) | payer MEDICARE, MEDICAID, SELFPAY ==
[2024-01-22 08:52] VITALS: BMI 55.0
--- NOTE | 2024-01-22 08:52 | A.OFFVIS_ITS ---
Vital Signs 01/22/24 08:52 Height 5 ft 2 in Weight 301 lb BMI 55.0 Intake Visit Reasons: OV-Right TKA 10/02/23 DR-follow up Intake Note: Ms. Matute presents with mild intermittent discomfort in her right knee after undergoing right total knee replacement surgery on 10/02/2023. She has completed formal physical therapy. She takes Tylenol as needed for discomfort. She denies any fevers or chills. She would like to return to work at [employer]. Allergies adhesive tape Allergy (Verified 01/22/24 08:54) Redness of Skin amlodipine Allergy (Verified 01/22/24 08:54) Nausea empagliflozin [From Jardiance] Allergy (Verified 01/22/24 08:54) Abdominal Pain erythromycin base [From Erythrocin] Allergy (Verified 01/22/24 08:54) Abdominal Pain losartan Allergy (Verified 01/22/24 08:54) Headache metformin Allergy (Verified 01/22/24 08:54) Abdominal Pain oxybutynin Allergy (Verified 01/22/24 08:54) Unknown peanut Allergy (Verified 01/22/24 08:54) Swelling sulfamethoxazole [From Bactrim] Allergy (Verified 01/22/24 08:54) Hives trimethoprim [From Bactrim] Allergy (Verified 01/22/24 08:54) Hives Medication List - Last Reconciled 01/22/24 by Allan Davalos MD acetaminophen 650 mg (2 x 325 mg) PO Q6H PRN 30 days albuterol sulfate 90 mcg/actuation 2 puffs inhalation QID PRN amoxicillin 2,000 mg (4 x 500 mg) PO ONCE 1 day aspirin 325 mg PO BID 42 days candesartan 32 mg PO DAILY celecoxib 200 mg PO BID 30 days cholecalciferol (vitamin D3) 10 mcg PO DAILY clotrimazole 1% 1 appl topical BID docusate sodium 100 mg PO BID 14 days escitalopram oxalate 30 mg PO DAILY fluticasone furoate-vilanterol 100-25 mcg/dose (Breo Ellipta) 1 ea inhalation DAILY glipizide ER 5 mg PO DAILY lactobacillus combination no.4 (Probiotic) 3,000 mmu cells PO DAILY metoprolol succinate ER 25 mg PO DAILY@1700 mirabegron ER (Myrbetriq) 50 mg PO BEDTIME multivitamin 1 tab PO DAILY omeprazole 20 mg PO DAILY rosuvastatin 40 mg PO DAILY@1700 semaglutide (Ozempic) 2 mg subcut QWEEK PFSH Medical History (Updated 10/13/23 @ 00:02 by Ino Aldana) Hard of hearing Back pain Overactive bladder Bronchitis Edema Hx of lipoma Urinary frequency Osteoporosis Osteopenia Osteoarthritis Sleep apnea Obesity, morbid, BMI 40.0-49.9 Hx of breast cancer HTN (hypertension) Hyperlipidemia GERD (gastroesophageal reflux disease) Polyneuropathy Diabetes Asthma Anxiety Depression Surgical History (Updated 11/16/23 @ 11:40 by Helena Arshad [facility]) Hx of right knee surgery (~10/02/23) H/O colonoscopy History of endometrial ablation History of tubal ligation H/O removal of cyst Hx of carpal tunnel repair History of lumpectomy of left breast History of left knee replacement Social History Household Members: Spouse Housing: House Are you a primary career technical education instructor to a significant other at home: No Do you presently have visiting nurse or other home services: No Alcohol intake: never Patient Tobacco Use Status: Former Tobacco user service: No 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 , 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 Matute continues to do well after undergoing right total knee replacement surgery on 10/02/2019. Should continue with her home exercise program. She does know to take antibiotics before any dental work. I have mary red her to return to work. She will contact me prior to her follow-up appointment in 3 months should any questions or concerns arise. Feel free to call me at any time should questions regarding her orthopedic management arise. I spent 20 minutes in reviewing the patient's records and imaging studies, seeing the patient and documenting in the medical record. Coding Level of Care Code Est Pt Level 3 (57450) Diagnoses Right knee pain M25.561
== END 2024-01-22 09:16 | disposition home or self-care (01) ==
PROVIDERS: PCP Physician Assistant; Visit Provider Orthopaedic Surgery
DX: M25.561 Pain in right knee (principal); Z96.651 Presence of right artificial knee joint
CPT/HCPCS: 99213

== ENCOUNTER → 2024-01-22 08:42 | Outpatient (BNVA) | payer MEDICARE, MEDICAID, SELFPAY | PROVIDERS: PCP Physician Assistant; Visit Provider Orthopaedic Surgery | DX: Z47.1 Aftercare following joint replacement surgery (principal); Z96.651 Presence of right artificial knee joint | CPT/HCPCS: 99212 ==

== ENCOUNTER 2024-04-23 09:23 | Outpatient (AMB) | payer MEDICARE, MEDICAID, SELFPAY ==
[2024-04-23 09:32] VITALS: BMI 55.0
--- NOTE | 2024-04-23 09:32 | MHC.OFFVIS ---
Vital Signs 04/23/24 09:32 Height 5 ft 2 in Weight 301 lb BMI 55.0 Intake Visit Reasons: OV-Right TKA 10/02/23 DR-follow up Intake Note: Holly 68 year old female who presents with complaints of mild intermittent discomfort in her right knee after undergoing right total knee replacement surgery on 10/02/2023. She continues with her home exercise program. She denies any fevers or chills. She does not take any medicines for her discomfort. Allergies adhesive tape Allergy (Verified 04/23/24 09:33) Redness of Skin amlodipine Allergy (Verified 04/23/24 09:33) Nausea empagliflozin [From Jardiance] Allergy (Verified 04/23/24 09:33) Abdominal Pain erythromycin base [From Erythrocin] Allergy (Verified 04/23/24 09:33) Abdominal Pain losartan Allergy (Verified 04/23/24 09:33) Headache metformin Allergy (Verified 04/23/24 09:33) Abdominal Pain oxybutynin Allergy (Verified 04/23/24 09:33) Unknown peanut Allergy (Verified 04/23/24 09:33) Swelling sulfamethoxazole [From Bactrim] Allergy (Verified 04/23/24 09:33) Hives trimethoprim [From Bactrim] Allergy (Verified 04/23/24 09:33) Hives Medication List - Last Reconciled 04/24/24 by Allan Davalos MD acetaminophen 650 mg (2 x 325 mg) PO Q6H PRN 30 days albuterol sulfate 90 mcg/actuation 2 puffs inhalation QID PRN amoxicillin 2,000 mg (4 x 500 mg) PO ONCE 1 day aspirin 325 mg PO BID 42 days candesartan 32 mg PO DAILY celecoxib 200 mg PO BID 30 days cholecalciferol (vitamin D3) 10 mcg PO DAILY clotrimazole 1% 1 appl topical BID docusate sodium 100 mg PO BID 14 days escitalopram oxalate 30 mg PO DAILY fluticasone furoate-vilanterol 100-25 mcg/dose (Breo Ellipta) 1 ea inhalation DAILY glipizide ER 5 mg PO DAILY lactobacillus combination no.4 (Probiotic) 3,000 mmu cells PO DAILY metoprolol succinate ER 25 mg PO DAILY@1700 mirabegron ER (Myrbetriq) 50 mg PO BEDTIME multivitamin 1 tab PO DAILY omeprazole 20 mg PO DAILY rosuvastatin 40 mg PO DAILY@1700 semaglutide (Ozempic) 2 mg subcut QWEEK PFSH Medical History (Updated 10/13/23 @ 00:02 by Ino Aldana) Hard of hearing Back pain Overactive bladder Bronchitis Edema Hx of lipoma Urinary frequency Osteoporosis Osteopenia Osteoarthritis Sleep apnea Obesity, morbid, BMI 40.0-49.9 Hx of breast cancer HTN (hypertension) Hyperlipidemia GERD (gastroesophageal reflux disease) Polyneuropathy Diabetes Asthma Anxiety Depression Surgical History (Updated 11/16/23 @ 11:40 by Helena Arshad [facility]) Hx of right knee surgery (~10/02/23) H/O colonoscopy History of endometrial ablation History of tubal ligation H/O removal of cyst Hx of carpal tunnel repair History of lumpectomy of left breast History of left knee replacement Social History Household Members: Spouse Housing: House Are you a primary career and transition teacher to a significant other at home: No Do you presently have visiting nurse or other home services: No Alcohol intake: never Patient Tobacco Use Status: Former Tobacco user service: No 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[employer] , 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 Physical Exam Vital Signs: BMI result Body Mass Index 55.0 Const Other: Well-nourished well-developed very friendly female awake alert and oriented x3 in no acute distress Extrem Other: Right knee examination shows that the surgical incision is well healed, no erythema, full active extension and flexion to 120 degrees, her patella tracks well Results Reviewed Results Reviewed: X-rays of the patient's right knee show a total knee arthroplasty in good position with no signs of loosening, no acute bony abnormalities Assessment & Plan Assessment & Plan (1) Right knee pain: Code(s): M25.561 - Pain in right knee Category: Medical Plan Holly continues to do very well after undergoing right total knee replacement surgery on 10/02/2023. She will continue with her home exercise program. She does know to take antibiotics before any dental work. She will contact me prior to her annual follow-up appointment should any questions or concerns arise. Feel free to call me at any time should questions regarding her orthopedic management arise. I spent 21 minutes in reviewing the patient's records and imaging studies, seeing the patient and documenting in the medical record. Orders: Orders XR knee RT 3V 04/23/24 M25.561 - Pain in right knee Coding Level of Care Code Est Pt Level 3 (20571) Complex EM visit Add On G2211 Diagnoses Right knee pain M25.561
== END 2024-04-23 09:56 | disposition home or self-care (01) ==
PROVIDERS: PCP Physician Assistant; Visit Provider Orthopaedic Surgery
DX: M25.561 Pain in right knee (principal); Z96.651 Presence of right artificial knee joint
CPT/HCPCS: 99213; G2211

== ENCOUNTER 2024-04-23 12:55 | Outpatient (REF) | payer MEDICARE, MEDICAID, SELFPAY | END 2024-04-23 12:56 | disposition home or self-care (01) | LOC: HO.HOSX 12:55 | PROVIDERS: Visit Provider Orthopaedic Surgery | DX: M25.561 Pain in right knee (principal); Z96.651 Presence of right artificial knee joint | CPT/HCPCS: 73562; 99212 ==

== ENCOUNTER 2024-09-24 10:54 | Outpatient (AMB) | payer MEDICARE, MEDICAID, SELFPAY ==
[2024-09-24 11:33] VITALS: BMI 55.0
--- NOTE | 2024-09-24 11:33 | MHC.OFFVIS ---
Vital Signs 09/24/24 11:33 Height 5 ft 2 in Weight 301 lb BMI 55.0 Intake Visit Reasons: Bilateral knee discomfort Intake Note: Holly 69 year old female who presents with complaints of intermittent discomfort in both of her knees after undergoing bilateral total knee replacement surgeries. She denies any fevers or chills. She does not take any medicines for discomfort. She continues with her home exercise program. Allergies adhesive tape Allergy (Verified 09/24/24 11:34) Redness of Skin amlodipine Allergy (Verified 09/24/24 11:34) Nausea empagliflozin [From Jardiance] Allergy (Verified 09/24/24 11:34) Abdominal Pain erythromycin base [From Erythrocin] Allergy (Verified 09/24/24 11:34) Abdominal Pain losartan Allergy (Verified 09/24/24 11:34) Headache metformin Allergy (Verified 09/24/24 11:34) Abdominal Pain oxybutynin Allergy (Verified 09/24/24 11:34) Unknown peanut Allergy (Verified 09/24/24 11:34) Swelling sulfamethoxazole [From Bactrim] Allergy (Verified 09/24/24 11:34) Hives trimethoprim [From Bactrim] Allergy (Verified 09/24/24 11:34) Hives Medication List - Last Reconciled 09/24/24 by Allan Davalos MD acetaminophen 650 mg (2 x 325 mg) PO Q6H PRN 30 days albuterol sulfate 90 mcg/actuation 2 puffs inhalation QID PRN amoxicillin 2,000 mg (4 x 500 mg) PO ONCE 1 day aspirin 325 mg PO BID 42 days candesartan 32 mg PO DAILY celecoxib 200 mg PO BID 30 days cholecalciferol (vitamin D3) 10 mcg PO DAILY clotrimazole 1% 1 appl topical BID docusate sodium 100 mg PO BID 14 days escitalopram oxalate 30 mg PO DAILY fluticasone furoate-vilanterol 100-25 mcg/dose (Breo Ellipta) 1 ea inhalation DAILY glipizide ER 5 mg PO DAILY lactobacillus combination no.4 (Probiotic) 3,000 mmu cells PO DAILY metoprolol succinate ER 25 mg PO DAILY@1700 mirabegron ER (Myrbetriq) 50 mg PO BEDTIME multivitamin 1 tab PO DAILY omeprazole 20 mg PO DAILY rosuvastatin 40 mg PO DAILY@1700 semaglutide (Ozempic) 2 mg subcut QWEEK PFSH Medical History (Updated 10/13/23 @ 00:02 by Ino Aldana) Hard of hearing Back pain Overactive bladder Bronchitis Edema Hx of lipoma Urinary frequency Osteoporosis Osteopenia Osteoarthritis Sleep apnea Obesity, morbid, BMI 40.0-49.9 Hx of breast cancer HTN (hypertension) Hyperlipidemia GERD (gastroesophageal reflux disease) Polyneuropathy Diabetes Asthma Anxiety Depression Surgical History (Updated 11/16/23 @ 11:40 by Helena Arshad [facility]) Hx of right knee surgery (~10/02/23) H/O colonoscopy History of endometrial ablation History of tubal ligation H/O removal of cyst Hx of carpal tunnel repair History of lumpectomy of left breast History of left knee replacement Social History Household Members: Spouse Housing: House Are you a primary hospice home care coordinator to a significant other at home: No Do you presently have visiting nurse or other home services: No Alcohol intake: never Patient Tobacco Use Status: Former Tobacco user service: No 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 , 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 Physical Exam Vital Signs: BMI result Body Mass Index 55.0 Const Other: Well-nourished well-developed very friendly female awake alert and oriented x3 in no acute distress Extrem Other: Bilateral lower extremity examination shows good capillary refill, no skin lesions noted, normal sensation light touch Bilateral knee examination shows that the surgical incisions are well healed, no erythema, full active extension and flexion to 120 degrees, her patellae track well Results Reviewed Results Reviewed: X-rays of the patient's bilateral knee show total knee arthroplasties in good position with no signs of loosening, no acute bony abnormalities Assessment & Plan Assessment & Plan (1) Status post total right knee replacement: Code(s): Z96.651 - Presence of right artificial knee joint Category: Medical (2) Status post total left knee replacement: Code(s): Z96.652 - Presence of left artificial knee joint Category: Medical Plan Holly continues to do well after undergoing bilateral total knee replacement surgeries. She will continue with her home exercise program. She does know to take antibiotics before any dental work. She will contact me prior to her annual follow-up appointment should any questions or concerns arise. Feel free to call me at any time should questions regarding her orthopedic management arise. I spent 21 minutes in reviewing the patient's records and imaging studies, seeing the patient and documenting in the medical record. Orders: Orders XR knee RT 3V Today Z96.651 - Presence of right artificial knee joint XR knee LT 3V Today Z96.652 - Presence of left artificial knee joint Coding Level of Care Code Est Pt Level 3 (47936) Complex EM visit Add On G2211 Diagnoses Status post total right knee replacement Z96.651 Status post total left knee replacement Z96.652
--- OUTSIDE RECORDS SUMMARY | 2024-09-24 13:23 | XMS_ITS | Clinical Summary ---
Author Organization [facility] Address [address] [place] [address] Care Team Providers Care Public Transit Trolley Driver Name Role Phone [employer] Unger Primary Care Provider [phone] Allergies Active Allergy Reactions Criticality Noted Date Comments Amlodipine Swelling High 06/24/2021 Peanut Swelling High 12/03/2019 Medications predniSONE (DELTASONE) 20 mg tablet Take 3 tabs for 3 days then take 2 tabs for 3 days then take 1 tab for 3 days 1 Active omeprazole (PriLOSEC) 20 mg capsule Take 20 mg by mouth. Active dulaglutide (TRULICITY) 1.5 mg/0.5 mL injection dose Inject under the skin. Active candesartan cilexetil (CANDESARTAN ORAL) candesartan Take No date recorded No form recorded No frequency recorded No route recorded No set duration recorded No set duration amount recorded active No dosage strength recorded No dosage strength units of measure recorded Active escitalopram (LEXAPRO) 20 mg tablet Take 20 mg by mouth. Active chlorthalidone (HYGROTEN) 25 mg tablet Take 25 mg by mouth. 3 Active mirabegron (MYRBETRIQ) 25 mg tablet Take by mouth. Activ e metoprolol succinate XL (TOPROL XL) 25 mg tablet Take 25 mg by mouth once a day. 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 Family History Medical History Relation Name Comments Other Mother Family History of arthritis Relation Name Status Comments Mother Social History Tobacco Use Types Packs/Day Years Used Date Smoking Tobacco: Former Smokeless Tobacco: Never Comments:: Alcohol Use Standard Drinks/Week Comments Never 0 (1 standard drink = 0.6 oz pur e alcohol) Comments Unknown Sex and Gender Information Value Date Recorded Sex Assigned at Not on file Legal Sex Female 12:08 AM EDT Gender Identity Not on file Sexual Orientation Not on file Last Filed Vital Signs Vital Sign Reading Time Taken Comments Blood Pressure 132/77 06/24/2021 2:28 PM EST Pulse 77 06/24/2021 2:28 PM EST Temperature - - Respiratory Rate - - Oxygen Saturation - - Inhaled Oxygen Concentration - - Weight 132.5 kg (292 lb) 06/24/2021 3:20 PM EST Height 157.5 cm (5' 2 ) 06/24/2021 3:20 PM EST Body Mass Index 53.41 06/24/2021 3:20 PM EST Plan of Treatment Health Maintenance Due Date Last Done Comments Basic Metabolic Panel 1957 Cologuard 1957 Colon Cancer Screening 1957 Colonoscopy 1957 FOBT / Fit Test 1957 Hemoglobin A1C 1957 Hepatitis C Screening 1957 Sigmoidoscopy 1957 Ophthalmology Exam 1967 Urine Microalbumin 1967 Pneumococcal Vaccine: 50+ Years (1 of 2 - PCV) 1976 DTaP,Tdap,and Td Vaccines (1 - Tdap) [address] Lung Cancer Screening (Baseline) 2007 Osteoporosis Screening 2007 RSV Vaccine (60+ years old and patients) (1 - Risk 60-74 years 1-dose series) 2017 COVID-19 Vaccine ( season) 2024 05/14/2021, 10/29/2020, 10/01/2020 Influenza Vaccine (#1) 2024 , 03/16/2020, 04/12/2019, Additional history exists Alcohol/Substance Use Screening 07/17/2024 Depression Screening and Follow-Up 07/17/2024 Health Care Proxy Review 07/17/2024 Social Drivers of Health Annual Screening 07/17/2024 Zoster Vaccines Completed 05/08/2018, 02/27/2018 Hepatitis B Vaccines Aged Out No long er eligible based on patient's age to complete this topic Insurance [facility] Care Teams Public Transit Trolley Driver Relationship Specialty Start Date End Date Humera Unger [address] [facility] [place] [id number] PCP - General 06/23/21
--- OUTSIDE RECORDS SUMMARY | 2024-09-24 13:23 | XMS_ITS ---
Author Name [facility] Organization Unknown History of Medication Use Medication Directions Dispensed Refills Start Date End Date Stat us amoxicillin 875 mg-potassium clavulanate 125 mg tablet active albuterol sulfate HFA 90 mcg/actuation aerosol inhaler active chlorthalidone 25 mg tablet active amoxicillin 500 mg capsule active betamethasone dipropionate 0.05 % topical cream acti ve clotrimazole 1 % topical cream active rosuvastatin 40 mg tablet active tacrolimus 0.1 % topical ointment active Ozempic 1 mg/dose (4 mg/3 mL ) subcutaneous pen injector active Myrbetriq 50 mg tablet,extended release a ctive fluconazole 150 mg tablet active estradiol 0.01% (0.1 mg/gram ) vaginal cream active Problems Problem Status Onset Date Problem Type Date of Resoluti on Source Osteoarthritis of right knee joint active 2022-12-09 ProblemAct [facility] Encounters Encounter Type Encounter Reason Primary Diagnosis Location Date Ambulatory [facility] 01/13/2023 Ambulatory [facility] 12/09[facility]2022 [facility] 12/09/2022 [facility] 12/07/2022 [facility] 12/07/2022
--- OUTSIDE RECORDS SUMMARY | 2024-09-24 13:23 | XMS_ITS | Clinical Summary ---
Author Organization [facility] Address [address] [place] [address] Care Team Providers Care Tube Draw Helper Name Role Phone Humera Unger Primary Care Provider [phone] Allergies Active Allergy Reactions Criticality Noted Date Comments Amlodipine Erythromycin Base Empagliflozin 12/03/2019 Losartan 12/03/2019 Metformin 08/31/2022 Other reaction(s): severe stomach aches Oxybutynin 08/31/2022 Other reaction(s): severe dry mouth Peanuts 12/03/2019 Sulfamethoxazole-Trimethoprim 2022 Medications Medication Sig Dispensed Refills Start Date End Date Status Dulaglutide (TRULICITY) 1.5 MG/0.5ML SOPN Inject under the skin. 0 Active chlorthalidone (HYGROTON) 25 MG tablet Take 25 mg by mouth daily. 0 Active atorvastatin (LIPITOR) tablet 40 mg Take 40 mg by mouth daily. 0 Active escitalopram (LEXAPRO) 20 MG tablet Take 20 mg by mouth daily. 0 Active aspirin EC 81 MG tablet Take 81 mg by mouth daily. 0 Active omeprazole (PriLOSEC) 20 MG capsule Take 20 mg by mouth daily. 0 Active albuterol (PROVENTIL) (2.5 MG/3ML) 0.083% nebulizer solution Take 2.5 mg by nebulization every 6 (six) hours as needed for wheezing. 0 Active Budesonide-Formote rol Fumarate (SYMBICORT IN) Inhale into the lungs. 0 Active glipiZIDE (GLUCOTROL XL) ER 24 hr tablet 5 mg Take 5 mg by mouth daily. 0 Active Mirabegron ER (MYRBETRIQ) 25 MG TB24 24 hr tablet Take by mouth. 0 Act lm Mirabegron (MYRBETRIQ PO) MyrbetriqTakeNo date recordedNo form recordedNo frequency recordedNo route recordedNo set duration recordedNo set duration amount recordedactiveNo dosage strength recordedNo dosage strength units of measure recorded 0 Active amoxicillin (AMOXIL) 500 MG tablet Take 4 tabs 1 hour prior to dental appointment 20 tablet 3 09/25/2020 Active oxyCODONE (ROXICODONE) 5 MG immediate release tablet 1-2 tabs p.o. every 4 to 6 hours as needed for pain. May fill for lesser quantity 40 tablet 0 09/25/2020 Active sulfamethoxazole-t rimethoprim (Bactrim DS) 800-160 MG per tablet Take 1 tablet (160 mg of trimethoprim total) by mouth 2 (two) times a day. 20 tablet 0 10/02/2020 Active predniSONE (DELTASONE) tablet 20 mg Take 3 tabs for 3 days then take 2 tabs for 3 days then take 1 tab for 3 days 18 tablet 0 10/09/2020 Active oxyCODONE HCl (ROXICODONE) 10 MG TABS Take 1/2 to 1 tab every 8 hours as needed for pain 35 tablet 0 11/03/2020 Active candesartan (ATACAND) 16 MG tablet 0 07/12/2022 Active fluconazole (DIFLUCAN) 150 MG tablet 0 08/11/2022 Active Breo Ellipta 100-25 MCG/ACT inhaler 0 08/17/2022 Active ipratropium (ATROVENT) 0.03 % nasal spray 0 07/29/2022 Active rosuvastatin (CRESTOR) tablet 40 mg 0 08/06/2022 Active dulaglutide (Trulicity) 1.5 MG/0.5ML subcutaneous pen-injector Inject 0.5 mL (1.5 mg total) under the skin. 0 07/21/2022 Active Social History Tobacco Use Types Packs/Day Years Used Date Smoking Tobacco: Never Assessed Sex and Gender Information Value Date Recorded Sex Assigned at Not on file Gender Identity Not on file Sexual Orientation Not on file Job Start Date Occupation Industry Not on file Not on file Not on file Last Filed Vital Signs Vital Sign Reading Time Taken Comments Blood Pressure - - Pulse - - Temperature - - Respiratory Rate - - Oxygen Saturation - - Inhaled Oxygen Concentration - - Weight 140.6 kg (310 lb) 08/31/2022 2:06 PM EST Height 157.5 cm (5' 2 ) 08/31/2022 2:06 PM EST Body Mass Index 56.7 08/31/2022 2:06 PM EST Plan of Treatment Health Maintenance Due Date Last Done Comments Hepatitis C Screening 1957 COVID-19 Vaccine (#1) 1957 Depression Screening 1969 BMI Counseling 1975 Preventative Health Evaluation 1975 DTap / Tdap / Td (1 - Tdap) 1976 Colon Cancer Screening (Colonoscopy) 2002 Breast Cancer Screening (Mammogram) 2007 Pneumococcal Vaccine (2 of 2 - PCV) 10/08/2014 10/08/2013 Fall Risk Assessment 2022 Osteoporosis Screening (DEXA Scan) 2022 Influenza Vaccine (#1) 2024 2, 03/29/2021, 03/16/2020, Additional history exists RSV Adult > 60+ Yrs or (1 - 1-dose 75+ series) 2032 Shingrix-Zoster Vaccine Completed 05/08/20 18, 05/07/2018, 02/27/2018, Additional history exists Hepatitis B Vaccines Aged Out No long er eligible based on patient's age to complete this topic RSV Ped < 20 months Aged Out No longe r eligible based on patient's age to complete this topic Care Teams Tube Draw Helper Relationship Specialty Start Date End Date Humera Unger PA [address] [place] [address] PCP - General Physician [employer] Research Scientist 09/19/19
--- OUTSIDE RECORDS SUMMARY | 2024-09-24 13:23 | XMS_ITS | Data Portability ---
Author Organization [place] [facility] [place] Address [address] [facility] [address] [place] [address] Assessment No assessment recorded. Plan of Treatment Reminders Order Date Submit Date Provider Last Modified By Organization Details Last Modified Time Details Appointments None record ed. Lab None record ed. Referral None record ed. Procedures None record ed. Surgeries None record ed. Imaging XR, knee, 1 or 2 view 023 12/10/19 23 [email or web address] [facility], [address], [facility] [address], [place], [address], 3 12:42:40 Medication Orders None record ed. Patient TargetsNo targets recorded. Patient Instructions Encounter Date Encounter Id Patient Instructions Last Modified By Organization Details Last Modified Time 12/09/2022 [id number] Patellar view x-rays taken today demonstrate degenerative joint disease in the right patellofemoral joint with joint space narrowing and osteophyte formation. [email or web address] Not available 12/09/2022 09:35:24 Reason for Referral None Reported. Problems Name Problem SNOMED Code Status Onset Date Resolution Date Notes Provider Name and Address Organization Details Recorded Time Osteoarthri tis of right knee joint 0683749379742 00 Active 2022 Arpan Crockett MD [address] [facility] [address], [place], [address] [facility], 3 09:34:06 Problem Notes None recorded. Medical Equipment None Reported. Medications Name Sig Start Date Stop Date Status Note LastModified by Organization Details LastModified Time amoxicillin 500 mg capsule active Not Available Not Available N ot Available fluconazole 150 mg tablet active Not Available Not Available No t Available glipizide ER 5 mg tablet, extended release 24 hr active Not Available Not Available Not Available chlorthalidone 25 mg tablet active Not Available Not Available Not Available tacrolimus 0.1 % topical ointment active Not Available Not Avail able Not Available candesartan 16 mg tablet active Not Available Not Available No t Available betamethasone dipropionate 0.05 % topical cream active Not Available Not Available Not Available omeprazole 20 mg capsule,delayed release active Not Available Not Available Not Available metoprolol succinate ER 25 mg tablet,extended release 24 hr active Not Available Not Availabl e Not Available estradiol 0.01% (0.1 mg/gram) vaginal cream active Not Available Not Availabl e Not Available albuterol sulfate HFA 90 mcg/actuation aerosol inhaler active Not Available Not Availa ble Not Available clotrimazole 1 % topical cream active Not Available Not Availabl e Not Available ipratropium bromide 21 mcg (0.03 %) nasal spray active Not Available Not Available Not Available amoxicillin 875 mg-potassium clavulanate 125 mg tablet active Not Available Not Available No t Available escitalopram 20 mg tablet active Not Available Not Available No t Available azelaic acid 15 % topical gel active Not Available Not Availabl e Not Available ciprofloxacin 0.3 %-dexamethasone 0.1 % ear drops,suspension active Not Available Not Avail able Not Available rosuvastatin 40 mg tablet active Not Available Not Available No t Available nitrofurantoin monohydrate/macr ocrystals 100 mg capsule active Not Available Not Available Not Available Myrbetriq 25 mg tablet,extended release active Not Available Not Available Not Available Myrbetriq 50 mg tablet,extended release active Not Available Not Available Not Available Breo Ellipta 100 mcg-25 mcg/dose powder for inhalation active Not Available Not Available N ot Available Trulicity 1.5 mg/0.5 mL subcutaneous pen injector active Not Available Not Available Not Available Ozempic 1 mg/dose (4 mg/3 mL) subcutaneous pen injector active Not Available Not Available Not Available Vitals Date Recorded Body weight Body mass index (BMI) Body height Provider Name and Address Organization Details Last Updated DateTime 12/09/2022 811670.3 g 56.9 kg/m2 154.[address] [facility] 12/09/2022 09:17:39 Social History None recorded. Functional Status None recorded. Mental Status None recorded. Family History Nothing Reported. Medical History No medical history recorded. Gynecological HistoryNo gynecological history recorded. Obstetrics History GPAL:G 0 P 0 0 0 0 Past Encounters Encounter ID Performer Location Encounter Start Date Encounter Closed Date Diagnosis/Indication Diagnosis SNOMED-CT Code Diagnosis ICD10 Code Diagnosis Note [id number] [facility] [address] [place] [address] 12/09/2022 08:57:51 12/09/2022 09:37:44 Pain of right knee joint 1504805978 32041 M25.561 Osteoarthr itis of right knee joint 4193145556 80763 M17.11 Body mass index 40+ - severely obese 750700699 Z68.43 Health Concerns Section Related Observation LastModified by Organization Detai ls LastModified Time None Recorded Concern Status LastModified by Organization Details LastModified Time None Recorded Advance Directives Directive None Recorded Payers Encounter Date Sequence Insurance Name Policy Number Policy Pizano Covered Member ID Pizano Member ID Guarantor Name 12/09/2022 1 [place] [employer] Holly Matute [id number] Holly Matute 12/09/2022 2 [place] [facility] Holly Matute [id number] Holly Matute Notes Date Note Type Note Provider Name and Address Organization Details Recorded Time 12/09/2022 text/html HPI:Patient is h ere today with complaints of right knee pain. ?The patient is experiencing right knee pain, which is moderate in intensity, and has recently worsened. The pain limits some activities of daily living. Walking tolerance is reduced. Pain and restriction of function are significant at this time. She has a history of a left total knee replacement with Dr. Davalos. She takes extra strength Tylenol at night. She states injections are no longer helpful. Review of systems is negative for other rapidly progressive neurological disorder, chest pain, shortness of breath, fevers, chills, or any signs of active or persistent local or systemic infection. Physical Exam? ? ?: Patient is morbidly obese, in no acute distress, with appropriate mood and affect. The patient is oriented to time, place, and person. Examination of the contralateral knee shows normal range of motion, strength, no tenderness, and well-healed skin incision. The affected limb is well-perfused, without skin lesions, shows a grossly normal motor and sensory examination. Right knee motion is {{reduced and does cause significant pain* is not reduced and does not cause significant pain}}. The right knee moves from 5-100 degrees. The knees are stable within those [id number]-zr-[id number]. The alignment of the right knee is {{varus* valgus neut ral}} . Muscle strength is normal. Pedal pulses are palpable. Hip examination, including flexion and internal rotation, was negative in that groin pain was not produced. Imaging:Radiographs of the right knee from August 2022 demonstrate degenerative joint disease with joint space narrowing, osteophyte formation, and subchondral sclerosis. Issi-gz-rbpu articulation in the medial compartment. Assessment/Plan? ? ?: The patient has right knee arthritis. An extensive discussion was conducted on the natural history of the disease and the variety of surgical and non-surgical options available to the patient including, but not limited to non-steroidal anti-inflammatory medications, steroid injections, viscosupplementation , physical therapy, maintenance of ideal body weight, and reduction of activity. Patient is interested in surgery, and had previous discussion about right total knee replacement with Dr. Davalos. I discussed with her that her BMI of 56 and morbidly obese status puts her at significantly elevated risk of periprosthetic joint infection and other complications related to total knee replacement. From my perspective, I recommend she loses weight but for being considered for total knee replacement surgery. We are happy to treat her with conservative management for now. She can follow-up as needed. Arpan Crockett MD [address] [place] [address], [place], [address], [place] [facility] 12/09/2022 09:35:33 OBGyn Episode No OBEpisode recorded.
--- OUTSIDE RECORDS SUMMARY | 2024-09-24 13:23 | XMS_ITS | Referral Summary ---
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
--- OUTSIDE RECORDS SUMMARY | 2024-09-24 13:23 | XMS_ITS | Clinical Summary ---
Author Organization [facility] Address [address] [place] [address] Care Team Providers Care Wheelabrator Operator Name Role Phone Mirta Casey DMD Primary Care Provider [phone] Source Comments PLEASE NOTE, if this patient is a minor, it may be UNLAWFUL to discuss sensitive information that is contained in these records (such as FAMILY PLANNING, MENTAL HEALTH or SUBSTANCE ABUSE) with the minor patient's parent or other person without the patient's specific authorization.[facility] Medications amoxicillin (AMOXIL) 500 mg capsuleIndicati ons:Bacteremia 4 caps 1 hour before any dental procedure 4 Capsule Active Active Problems No known active problems Social History Tobacco Use Types Packs/Day Years Used Date Smoking Tobacco: Never Smokeless Tobacco: Never Social Connections Answer Date Recorded Connectedness 0 04/03/2024 Financial Resource Strain Answer Date R ecorded Financial Resource Strain 0 2021 Stress Answer Date Recorded Stress 0 11/16/2021 Physical Activity Answer Date Recorded Physical Activity 0 11/16/2021 Food Insecurity Answer Date Recorded Food 0 04/11/2024 Transportation Needs Answer Date Record ed Transportation 0 11/16/2021 Housing Stability Answer Date Recorded Housing 0 11/16/2021 Safety and Environment Answer Date Manolo rded Safety 0 11/16/2021 Utilities Answer Date Recorded Utilities 0 11/16/2021 Employment Answer Date Recorded Stress 0 04/03/2024 Comments Unknown Sex and Gender Information Value Date Recorded Sex Assigned at Not on file Legal Sex Female 4:47 AM PDT Gender Identity Not on file Sexual Orientation Not on file Last Filed Vital Signs Vital Sign Reading Time Taken Comments Blood Pressure 142/84 05/25/2023 1:42 PM EST Pulse 67 05/25/2023 1:42 PM EST Temperature - - Respiratory Rate - - Oxygen Saturation - - Inhaled Oxygen Concentration - - Weight - - Height - - Body Mass Index - - Plan of Treatment Health Maintenance Due Date Last Done Comments Diabetes Screening 1955 Hepatitis C Screening 1957 Lipid Screening 1957 Tobacco Screening 1955 Breast Cancer Screening (Mammogram) 1997 CT Colonography 2002 Colonoscopy 2002 Colorectal Cancer Screening 2002 FIT/gFOBT 2002 Fecal DNA 2002 Flexible Sigmoidoscopy 2002 Imm-Zoster, Recombinant (1 of 2) 2007 Imm-Pneumococcal 65+ (2 of 2 - PCV) 10/08/2014 10/08/2013 Bone Density Screening 2022 Falls Prevention 2022 Imm-DTaP/Tdap/Td (2 - Td or Tdap) 09/21/2023 014 [id number] ( season) 2024 04/21/2023, 10/20/2021, 05/14/2021, Additional history exists Imm-Influenza (#1) 2024 03/28/2023, 0 03/28/2022, 03/29/2021, Additional history exists Hypertension Screening (#1) 05/24/2024 Dental BW 05/27/2024 05/25/2023, 05/0 02/2023, 05/23/2022, Additional history exists Dental Examination 05/27/2024 05/25/2023, 0 11/21/2022, 11/17/2021 Dental Perio Charting 05/27/2024 05/25/2023 , 11/21/2022, 05/23/2022, Additional history exists Dental Prophy 05/27/2024 05/25/2023, 05/0 02/2023, 05/23/2022, Additional history exists Alcohol and Drug Screen 07/17/2024 Depression Annual Screen 07/17/2024 Dental FMX/Pano 11/19/2026 11/17/2021 Procedures Procedure Name Priority Date/Time Associated Diagnosis Comments COMP PERIODONTAL EVALUATION - NEW/EST PATIENT Routine 05/25/2023 1:40 PM EST Caries of enamel (incipient) BITEWINGS - FOUR RADIOGRAPHIC IMAGES Routine 05/25/2023 1:40 PM EST Caries of enamel (incipient) PROPHYLAXIS - ADULT Routine 05/25/2023 1 :40 PM EST Caries of enamel (incipient) PERIODIC ORAL EVALUATION ESTABLISHED PATIENT Routine 05/25/2023 1:40 PM EST Caries of enamel (incipient) INTRAORAL - COMP SERIES OF RADIOGRAPHIC IMAGES Routine 11/17/2021 4:20 PM EDT Periodontitis from Last 3 Months or Most Recently Relevant to Health Maintenance Insurance [facility] DENTAL MEDICAID DENTAL Care Teams Wheelabrator Operator Relationship Specialty Start Date End Date Mirta Casey DMD [address] [place] [address] PCP - General 09/25/20
== END 2024-09-24 12:16 | disposition home or self-care (01) ==
LOC: HO.HOS 10:55
PROVIDERS: PCP Physician Assistant; Visit Provider Orthopaedic Surgery
DX: Z47.89 Encounter for other orthopedic aftercare (principal); Z96.653 Presence of artificial knee joint, bilateral
CPT/HCPCS: 99213; G2211

== ENCOUNTER → 2024-09-24 10:59 | Outpatient (BNV) | payer MEDICARE, MEDICAID, SELFPAY | PROVIDERS: Visit Provider Radiology Diagnostic Radiology | DX: Z96.651 Presence of right artificial knee joint (principal); Z96.652 Presence of left artificial knee joint | CPT/HCPCS: 73562 ==

== ENCOUNTER 2024-09-24 15:15 | Outpatient (REF) | payer MEDICARE, MEDICAID, SELFPAY ==
--- NOTE | ~2024-09-24 | XR_ITS ---
EXAMINATION: XR KNEE, LEFT CLINICAL INFORMATION: Z96.652 - Presence of left artificial knee joint COMPARISON: 08/31/2022. TECHNIQUE: Three views of the left knee. FINDINGS: Total left knee arthroplasty in place. Associated patellar resurfacing. Tibial and femoral components are intact, anatomically aligned, without evidence of loosening or periprosthetic abnormality. No evidence of joint effusion. Normal soft tissues. XR/XR knee LT 3V IMPRESSION: Left knee total arthroplasty without apparent complication. Electronically signed by: Eulogio Selby MD 09/25/2024 08:25 AM EDT
--- NOTE | ~2024-09-24 | XR_ITS ---
EXAMINATION: XR KNEE, RIGHT CLINICAL INFORMATION: Z96.651 - Presence of right artificial knee joint COMPARISON: 04/23/2024, 10/19/2023, 03/29/2023, 08/31/2022. TECHNIQUE: Three views of the right knee. FINDINGS: Total right knee arthroplasty in place. Associated patellar resurfacing. Tibial and femoral components are intact, anatomically aligned, without evidence of loosening or periprosthetic abnormality. Small amount of fluid in the suprapatellar bursa. Normal soft tissues. XR/XR knee RT 3V IMPRESSION: Right knee total arthroplasty without apparent complication. Electronically signed by: Eulogio Selby MD 09/25/2024 08:24 AM EDT
--- OUTSIDE RECORDS SUMMARY | 2024-09-25 18:02 | XMS_ITS | Clinical Summary ---
Author Organization [facility] Address [address] [place] [address] Care Team Providers Care Foundry Worker Name Role Phone Mirta Casey DMD Primary Care Provider [phone] Source Comments PLEASE NOTE, if this patient [...] (2 - Td or Tdap) 09/21/2023 014 [id number] ( season) 2024 04/21/2023, 10/20/2021, 05/14/2021, Additional [...] Most Recently Relevant to Health Maintenance Insurance [facility] DENT[facility] MEDICAID DENTAL Care Teams Foundry Worker Relationship Specialty Start Date End Date Mirta Casey DMD [address] [place] [address] PCP - General 09/25/20
--- OUTSIDE RECORDS SUMMARY | 2024-09-25 18:02 | XMS_ITS | Data Portability ---
Author Organization ID - [facility], Allergy Address [address] [place] [id number] Care Team Providers Care Treasury Manager Name Role Phone MOIRA, ANGELES Primary Care Provider Assessment Encounter Date Assessment Date Assessment LastModified by Organization Details LastModified Time 03/26/2024 03/26/2024 Purulent otorrhea was noted in the right ear today and debrided with suction. Bilateral tympanic membrane perforations are noted and appear stable from prior exam. She has evidence of congested nasal mucosa on exam with mild turbinate hypertrophy. No obvious polyps or any other pathology is seen. Recommend a course of Tobradex drops to the right ear which has worked well for her previously. She will follow up with GUILLAUME Saleem in the [place] office in 3 weeks or so. She understands to take breaks from right sided hearing aid use as we are treating the infection. I have also prescribed ipratropium nasal spray for her CPAP related rhinitis. [email or web address] Not available 03/26/2024 16:26:56 05/30/2024 05/30/2024 69 year old female presents to the office for follow up of her right ear infection. Purulent otorrhea was noted in the right ear today and debrided with suction. Bilateral tympanic membrane perforations are noted and appear stable from prior exam. I have advised against use of the right hearing aid until we confirm that this infection is cleared. I have recommended that she continue the Tobradex drops and I have issued her a new prescription for this today. I will see her back in 2-3 weeks. Not available 05/30/2024 14:21:15 07/15/2024 07/15/2024 69 year old female presents for follow up of right ear. Otorrhea has resolved. Her chronic perforations are stable and she is doing well with amplification. She may discontinue Tobradex. She is doing well on Ipratropium for her CPAP related rhinitis. She will follow up on an as needed basis. Not available 07/15/2024 14:21:56 Plan of Treatment Reminders Order Date Submit Date Provider Last Modified By Organization Details Last Modified Time Details Appointments None recorded. Lab None recorded. Referral None recorded. Procedures None recorded. Surgeries None recorded. Imaging None recorded. Medication Orders tobramycin 0.3 %-dexametha sone 0.1 % eye drops,suspe nsion [facility] [id number] [address] [facility] [place], [address], 14:22:30 ipratropium bromide 21 mcg (0.03 %) nasal spray [facility] [id number] [address] [facility] [place], [address], 16:27:53 tobramycin 0.3 %-dexametha sone 0.1 % eye drops,suspe nsion 20[id number] [address] [facility] [place], [address], 16:27:23 Patient TargetsNo targets recorded. Patient InstructionsNo instructions recorded. Reason for Referral None Reported. Results Created Date Observation Date Name Description Value Unit Range Abnormal Flag Note LastModifiedBy Organization Detail LastModifiedTime 03/06/20 24 04/26/2021 imagi ng/di agnos tic resul t No observ ation record ed. [email or web address] Not Available 14:07:21 03/06/20 24 05/01/2020 imagi ng/di agnos tic resul t No observ ation record ed. [email or web address] Not Available 14:07:22 03/06/20 24 05/12/2021 imagi ng/di agnos tic resul t No observ ation record ed. [email or web address] Not Available 14:07:25 Result Notes None recorded. Problems Name Problem SNOMED Code Status Onset Date Resolution Date Notes Provider Name and Address Organization Details Recorded Time Mixed conducti ve and sensorin eural hearing loss, bilatera l 051872695 Active 2015 Mixed conducti ve and sensorin eural hearing loss, bilatera l; Note: Changed from H90.72 to H90.6 (06/20/20 2:28 PM) , Date Diagnose d: 02/18/2016 4:01 PM (H90.72) Not Available [facility] 4 02:55:42 Sensorin eural hearing loss 63250542 Active 2015 Sensorin eural hearing loss, unilater al, right ear, with unrestri cted hearing on the contrala teral side; Note: Date Diagnose d: 02/18/2016 4:02 PM (H90.41) Not Available [facility] 4 02:55:42 Acute myringit is of right ear [id number] 07715 Completed 201802/16/2024 Acute myringit is, right ear; Note: Date Diagnose d: 4:14 PM (H73.001 ) Not Available [facility] 4 02:55:42 Xerostom ia 55095517 Active 2016 Dry mouth, unspecif ied; Note: Date Diagnose d: 06/30/20 3:41 PM (R68.2) Not Available [facility] 4 02:55:45 Stomatit is 15112926 Active 2016 Oral thrush; Note: Date Diagnose d: 06/30/20 3:39 PM (B37.0) Not Available [facility] 4 02:55:46 Candidia sis of mouth 42771519 Active 2016 Oral thrush; Note: Date Diagnose d: 06/30/20 3:39 PM (B37.0) Not Available [facility] 4 02:55:46 Otorrhea of right ear 83731571285 14321 Active 2020 Otorrhea , right ear; Note: Date Diagnose d: 1 10:31 AM (H92.11) Otorrh ea, right ear; Note: Date Diagnose d: 01/15/2016 4:52 PM (H92.11) ; Start Date : 01/15/20 16 Not Available [facility] 4 02:55:43 Marginal perforat ion of tympanic membrane 02344428 Active 2015 Other marginal perforat ions of tympanic membrane , bilatera l; Note: Changed from H72.02 to H72.2X3 (06/20/20 17 2:21 PM) , Date Diagnose d: 01/15/2016 4:52 PM (H72.02) Not Available [facility] 4 02:55:43 Chronic rhinitis 13850689 Active 2015 Chronic rhinitis ; Note: Date Diagnose d: 6 11:51 AM (J31.0) Not Available [facility] 4 02:55:42 Otorrhea of left ear 61891852101 18039 Active 2019 Otorrhea , left ear; Note: Date Diagnose d: 0 3:15 PM (H92.12) Not Available [facility] 4 02:55:44 Bilatera l tympanic membrane central perforat ion 16129772066 46164 Active 2023 KIKA EVERETT PA-C [address] [facility],[place] [address], [place], [address] , [place] - [facility] [facility] 4 16:24:17 Nasal congesti on 13377556 Active 2023 KIKA EVERETT PA-C [address] [facility] [address], [place], [address] , [place] - [facility] [place] 4 16:24:27 Obstruct lm sleep apnea syndrome 37123853 Active 2023 KIKA EVERETT PA-C [address] [facility] [address], [place], [address] , [place] - [facility] [place] 4 16:24:31 Problem Notes None recorded. Procedures Surgical History None recorded. Imaging Results Imaging Date Name Status LastModified by Organiz ation Details LastModified Time 04/26/2021 imaging/diag nostic result completed Information not available 03/06/2024 14:07:21 05/01/2020 imaging/diag nostic result completed Information not available 03/06/2024 14:07:22 05/12/2021 imaging/diag nostic result completed Information not available 03/06/2024 14:07:25 Procedure Notes None recorded. Medical Equipment None Reported. Allergies Allergen ID Allergen Name Allergen Category Reaction Reaction Severity Criticality Documentation Date Start Date Code Code System Note Provider Name and Address Organization Details Recorded Time 54479 amlodipin e medicatio n other Not available Not available 11/28/2023 54491 RxNorm React ion: unkno wn, unspe cifie d;; Not Available [facility] 4 01:05:17 93086 losartan Not available other Not available Not available 11/28/2023 95093 RxNorm React ion: unkno wn, unspe cifie d;; Not Available [facility] 4 01:05:19 97055 erythromy junior medicatio n other Not available Not available 11/28/2023 4053 RxNorm React ion: unkno wn, unspe cifie d;; Not Available [facility] 4 01:05:22 Medications Name Sig Start Date Stop Date Status Note LastModified by Organization Details LastModified Time celecoxib 200 mg capsule active Not Available Not Available Not Available amoxicill in 500 mg capsule TAKE 1 CAPSULE BY MOUTH TWICE A DAY FOR 7 DAYS active Not Available Not Available No t Available atorvasta tin 40 mg tablet 2015 active Medicati on ID: [id number] B rand Name: atorvast atin Radu marques Method: E-Prescr ibed Sub s Allowed: subs OK Medic ationGen ericName : atorvast atin Not Available Not Available Not Available nystatin 100,000 unit/mL oral suspensio n SWISH AND SWALLOW 5 ML BY MOUTH 4 TIMES A DAY FOR 7 DAYS active Not Available Not Available No t Available doxycycli ne hyclate 100 mg capsule by mouth 2020 active Medicati on ID: [id number] D uration Value: 10 Prescri bed By Name: Shorty Escobedo MD Brand Name: doxycycl ine hyclate Send Method: E-Prescr ibed Sub s Allowed: subs OK Speci al Instruct ion: Take 1 po BID X 10 days Med icationG enericNa me: doxycycl ine hyclate Not Available Not Available Not Available albuterol sulfate 2.5 mg/3 mL (0.083 %) solution for nebulizat ion 2015 active Medicati on ID: [id number] B rand Name: Albutero l Sulfate Send Method: E-Prescr ibed Sub s Allowed: subs OK Medic ationGen ericName : Albutero l Sulfate Not Available Not Available Not Available ofloxacin 0.3 % eye drops APPLY 2 DROPS INTO AFFECTED EYE(S) 4 TIMES PER DAY FOR 7 DAYS active Not Available Not Available No t Available fluconazo le 150 mg tablet TAKE ONE TODAY AND ONE IN 72 HOURS DIRECTED active Not Available Not Available No t Available FreeStyle Lancets 28 gauge USE TO CHECK BLOOD GLUCOSE, THREE TIMES DAILY DX: E11.65 active Not Available Not Available No t Available valsartan 80 mg tablet 12/11 completed Medicati on ID: [id number] R bhavana: () Brand Name: valsarta n Send Method: E-Prescr ibed Sub s Allowed: subs OK Medic ationGen ericName : valsarta n Not Available Not Available Not Available chlorthal idone 25 mg tablet TAKE 1 TABLET BY MOUTH EVERY DAY active Not Available Not Available No t Available amoxicill in 500 mg tablet TAKE ALL 4 TABS 30-60MIN BEFORE DENTAL PROCEDUR E active Not Available Not Available No t Available benzonata te 100 mg capsule TAKE 2 CAPSULES BY MOUTH 3 TIMES A DAY NEEDED FOR COUGH active Not Available Not Available No t Available doxycycli ne monohydra te 100 mg capsule TAKE 1 CAPSULE BY MOUTH TWICE A DAY WITH FOOD & A FULL GLASS OF WATER. WEAR SUNSCREE N active Not Available Not Available No t Available glipizide ER 2.5 mg tablet, extended release 24 hr TAKE 1 TABLET BY MOUTH EVERY DAY active Not Available Not Available No t Available candesart an 16 mg tablet TAKE 1 TABLET BY MOUTH EVERY DAY active Not Available Not Available No t Available candesart an 32 mg tablet TAKE 1 TABLET BY MOUTH EVERY DAY active Not Available Not Available No t Available omeprazol e 20 mg capsule,d elayed release TAKE 1 CAPSULE BY MOUTH EVERY DAY active Not Available Not Available No t Available gabapenti n 100 mg capsule active Not Available Not Available Not Available metoprolo l succinate ER 25 mg tablet,ex tended release 24 hr TAKE 1 TABLET BY MOUTH EVERY DAY active Not Available Not Available No t Available Aspir-81 mg tablet,de layed release 2015 active Medicati on ID: [id number] B rand Name: Phyllis-81 Send Method: E-Prescr ibed Sub s Allowed: subs OK Medic ationGen ericName : Aspir-81 Not Available Not Available Not Available epinephri ne 0.3 mg/0.3 mL injection , auto-inje ctor INJECT 0.3 MG INTRAMUS CULARLY ONCE active Not Available Not Available No t Available estradiol 0.01% (0.1 mg/gram) vaginal cream APPLY 3 TIMES A WEEK active Not Available Not Available No t Available methylpre dnisolone 4 mg tablets in a dose pack TAKE 6 TABLETS ON DAY 1 DIRECTED ON PACKAGE AND DECREASE BY 1 TAB EACH DAY FOR A TOTAL OF 6 DAYS active Not Available Not Available No t Available albuterol sulfate HFA 90 mcg/actua tion aerosol inhaler TAKE 2 APPLICAT ION VIA INHALATI ON EVERY 4-6 HOURS FOR 5 DAYS THEN NEEDED FOR COUGH / SOB /WHEEZE active Not Available Not Available No t Available ipratropi um bromide 21 mcg (0.03 %) nasal spray USE 2 SPRAYS INTO BOTH NOSTRILS AT BEDTIME active Not Available Not Available No t Available amoxicill in 875 mg-potass ium clavulana te 125 mg tablet TAKE 1 TABLET BY MOUTH TWICE A DAY FOR 10 DAYS active Not Available Not Available No t Available tobramyci n 0.3 %-dexamet hasone 0.1 % eye drops,madhuri pension INSTILL 4 DROPS INTO RIGHT EAR 2 TIMES PER DAY FOR 2 WEEKS active Not Available Not Available No t Available oxycodone 5 mg tablet TAKE 1 TABLET BY MOUTH EVERY 8 HOURS NEEDED FOR PAIN FOR 10 DAYS active Not Available Not Available No t Available escitalop brayan 20 mg tablet TAKE 1 AND 1/2 TABLETS DAILY BY MOUTH active Not Available Not Available No t Available Ciprodex 0.3 %-0.1 % ear drops,madhuri pension Instill 4 drop into both ears twice a day as directed 2021 active Medicati on ID: [id number] D uration Value: 14 Brand Name: Ciprodex Send Method: E-Prescr ibed Sub s Allowed: subs OK Speci al Instruct ion: x 14 days Med icationG enericNa me: Ciprodex Not Available Not Available Not Available rosuvasta tin 40 mg tablet TAKE 1 TABLET BY MOUTH EVERY DAY active Not Available Not Available No t Available nitrofura ntoin monohydra te/macroc rystals 100 mg capsule TAKE 1 CAPSULE ORALLY EVERY 12 HOURS NEEDED FOR DYSURIA, FOR FIVE DAYS DIRECTED active Not Available Not Available No t Available FreeStyle Lite Strips USE TO CHECK BLOOD GLUCOSE, ONCE DAILY DX: E11.65 active Not Available Not Available No t Available Tradjenta 5 mg tablet 12/11 completed Medicati on ID: [id number] R bhavana: () Brand Name: Tradjent a Send Method: E-Prescr ibed Sub s Allowed: subs OK Medic ationGen ericName : Tradjent a Not Available Not Available Not Available Myrbetriq 25 mg tablet,ex tended release 2016 active Medicati on ID: [id number] B rand Name: Myrbetri q Send Method: E-Prescr ibed Sub s Allowed: subs OK Medic ationGen ericName : Myrbetri q Not Available Not Available Not Available Myrbetriq 50 mg tablet,ex tended release TAKE 1 TABLET BY MOUTH EVERY DAY active Not Available Not Available No t Available Trulicity 0.75 mg/0.5 mL subcutane ous pen injector 2016 active Medicati on ID: [id number] B rand Name: Trulicit y Send Method: E-Prescr ibed Sub s Allowed: subs OK Medic ationGen ericName : Trulicit y Not Available Not Available Not Available Breo Ellipta 200 mcg-25 mcg/dose powder for inhalatio n INHALE 1 PUFF DAILY active Not Available Not Available No t Available Ozempic 2 mg/dose (8 mg/3 mL) subcutane ous pen injector USE 2 MG SUBCUTAN EOUS INJECTIO N EVERY WEEK IN THE ABDOMEN, THIGH, OR UPPER ARM active Not Available Not Available No t Available Vitals Date Recorded Body height Body mass index (BMI) Body weight Provider Name and Address Organization Details Last Updated DateTime 03/26/2024 157.48 cm 55.1 kg/m2 100937.3 g Mojgan Solis ID - [facility] 03/26/2024 14:33:02 Date Recorded Body height Body mass index (BMI) Body weight Provider Name and Address Organization Details Last Updated DateTime 05/30/2024 157.48 cm 55.1 kg/m2 215886.3 g Mallory Shane ID - [facility] 05/30/2024 13:47:57 Date Recorded Body height Body mass index (BMI) Body weight Provider Name and Address Organization Details Last Updated DateTime 07/15/2024 157.48 cm 54.9 kg/m2 498974.71 g Gee Peres [facility] 07/15/2024 13:11:26 Social History None recorded. Functional Status None recorded. Mental Status None recorded. Family History Nothing Reported. Medical History No medical history recorded. Gynecological HistoryNo gynecological history recorded. Obstetrics History GPAL:G 0 P 0 0 0 0 Past Encounters Encounter ID Performer Location Encounter Start Date Encounter Closed Date Diagnosis/Indication Diagnosis SNOMED-CT Code Diagnosis ICD10 Code Diagnosis Note [id number] NOELLE PALMA MD [facility] [place] [facility] [address] [place] [address] 03/26/2024 14:12:30 03/26/2024 14:53:32 Bilateral tympanic membrane central perforation 6604881022 512359 H72.03 Otorrhea of right ear 10 60192422 466306 H92.11 Nasal congestion 6078795 0 R09.81 Obstructiv e sleep apnea syndrome 03322672 G47.33 [id number] MARYAM SORTO MD [facility] [address] [address] 05/30/2024 13:29:54 05/30/2024 14:00:57 Otorrhea of right ear 3314659120 973423 H92.11 Marginal p erforation of tympanic membrane 24671234 H72.2X3 [id number] MARYAM SORTO MD [facility] [address] [address] 07/15/2024 13:02:30 07/15/2024 13:44:37 Bilateral tympanic membrane central perforation 3160940675 232169 H72.03 Otorrhea of right ear 10 06096291 571520 H92.11 Chronic rhinitis 1872869 6 J31.0 Health Concerns Section Related Observation LastModified by Organization Detai ls LastModified Time None Recorded Concern Status LastModified by Organization Details LastModified Time None Recorded Advance Directives Directive None Recorded Payers Encounter Date Sequence Insurance Name Policy Number Policy Pizano Covered Member ID Pizano Member ID Guarantor Name 03/26/2024 2 MEDICAID-[place] [facility] Holly Scaadarsh [id number] Holly Scatimiarini 03/26/2024 1 [place] B[place] [facility] Holly Scatimiarini [id number] Holly Scagliarini 05/30/2024 2 MEDICAID-[place] [facility] Holly Scatimiarini [id number] Holly Scagliarini 05/30/2024 1 [place] [facility] Holly Scagliarini [id number] Holly Scagliarini 07/15/2024 2 MEDICAID-[place]: [facility] Holly Lozoyagliarini [id number] Holly Scagliarini 07/15/2024 1 [place] [facility] Holly Scagliarini [id number] Holly Scagliarini Notes Date Note Type Note Provider Name and Address Organization Details Recorded Time 03/26/2024 text/html 68 year old ezequiel lewis with a long standing history of bilateral tympanic membrane perforations and hearing loss with bilateral amplification, presents today for evaluation of bilateral otorrhea. The ears were initially painful, but not anymore. She has trouble wearing her hearing aids because they blocked with the drainage. She did see Urgent Care at one time and she was given amoxicillin. The pain is better, but her ears still feel goopy . She also mentions difficulties with nasal congestion related to her CPAP. She has tried a generic nasal spray from [facility], maybe fluticasone. NOELLE PALMA MD [address], [address], [facility] - [facility] 03/27/2024 04:48:25 05/30/2024 text/html 69 year old ezequiel lewis presents to the office for follow up of her right ear infection. She used the Tobradex for a couple of weeks then resumed use of her hearing aid. She reports that the right hearing continues to get clogged with drainage. MARYAM SORTO MD [address] [place] [address], [phone], [facility] 05/30/2024 21:01:01 07/15/2024 text/html 69 year old ezequiel lewis presents to the office for follow up of the right ear. She denies otorrhea. She used Tobradex drops following last office visit. She is back to using both hearing aids. She also reports that Ipratropium is helping with her postnasal drip. MARYAM SORTO MD [address] [place] [address], [phone], [facility] 07/15/2024 17:23:37 OBGyn Episode No OBEpisode recorded.
--- OUTSIDE RECORDS SUMMARY | 2024-09-25 18:02 | XMS_ITS | Referral Summary ---
Author Organization [facility] Address [address] [place] [address] Care Team Providers Care Account Installation Specialist Name Role Phone Humera Unger Primary Care Provider [phone] Allergies Active Allergy Reactions Criticality Noted Date [...] Plan of Treatment Not on file Insurance [facility] [place] [id number] Care Teams Account Installation Specialist Relationship Specialty Start Date End Date Humera Unger [address] [place] [address] PCP - General 06/23/21
--- OUTSIDE RECORDS SUMMARY | 2024-09-25 18:02 | XMS_ITS | Clinical Summary ---
Author Organization [facility] Address [address] [place] [address] Care Team Providers Care Security Chief Museum Name Role Phone Humera Unger Primary Care Provider [phone] Allergies Active Allergy Reactions Criticality Noted Date [...] patient's age to complete this topic Insurance [facility] Care Teams Security Chief Museum Relationship Specialty Start Date End Date Humera Unger [address] [facility] [place] [address] PCP - General 06/23/21
--- OUTSIDE RECORDS SUMMARY | 2024-09-25 18:02 | XMS_ITS | Clinical Summary ---
Author Organization [facility] Address [address] [place] [address] Care Team Providers Care Ground Transportation Operator Name Role Phone Humera Unger Primary Care Provider [phone] Allergies Active Allergy Reactions Criticality Noted Date [...] age to complete this topic Care Teams Ground Transportation Operator Relationship Specialty Start Date End Date Humera Unger PA [address] [place] [address] PCP - General Physician Oxyacetylene Burner 09/19/19
--- OUTSIDE RECORDS SUMMARY | 2024-09-25 18:02 | XMS_ITS | Data Portability ---
Author Organization [place] [facility] [place] Address [address] [facility] [address] [place] [address] Assessment No assessment recorded. Plan of Treatment Reminders Order Date Submit Date Provider Last Modified By Organization Details Last Modified Time Details Appointments None record ed. Lab None record ed. Referral None record ed. Procedures None record ed. Surgeries None record ed. Imaging XR, knee, 1 or 2 view 023 12/10/19 23 [email or web address] [facility], [address], [facility] [address], [place], [address], 3 12:42:40 Medication Orders None record ed. Patient TargetsNo targets recorded. Patient Instructions Encounter Date Encounter Id Patient Instructions Last Modified By Organization Details Last Modified Time 12/09/2022 [id number] Patellar view x-rays taken today demonstrate degenerative joint disease in the right patellofemoral joint with joint space narrowing and osteophyte formation. [email or web address] Not available 12/09/2022 09:35:24 Reason for Referral None Reported. Problems Name Problem SNOMED Code Status Onset Date Resolution Date Notes Provider Name and Address Organization Details Recorded Time Osteoarthri tis of right knee joint 3744381010604 00 Active 2022 Arpan Crockett MD [address] [facility] [address], [place], [address] [facility], 3 09:34:06 Problem Notes None recorded. Medical [...] Address Organization Details Last Updated DateTime 12/09/2022 945140.3 g 56.9 kg/m2 154.[address] [facility] 12/09/2022 09:17:39 Social History None recorded. Functional Status None recorded. Mental Status None recorded. Family History Nothing Reported. Medical History No medical history recorded. Gynecological HistoryNo gynecological history recorded. Obstetrics History GPAL:G 0 P 0 0 0 0 Past Encounters Encounter ID Performer Location Encounter Start Date Encounter Closed Date Diagnosis/Indication Diagnosis SNOMED-CT Code Diagnosis ICD10 Code Diagnosis Note [id number] [facility] [address] [place] [address] 12/09/2022 08:57:51 12/09/2022 09:37:44 Pain of right knee joint 1065185390 98979 M25.561 Osteoarthr itis of right knee joint 7748967868 56839 M17.11 Body mass index 40+ - severely obese 627056876 Z68.43 Health Concerns Section Related Observation LastModified by Organization Detai ls LastModified Time None Recorded Concern Status LastModified by Organization Details LastModified Time None Recorded Advance Directives Directive None Recorded Payers Encounter Date Sequence Insurance Name Policy Number Policy Pizano Covered Member ID Pizano Member ID Guarantor Name 12/09/2022 1 [place] [employer] Holly Matute [id number] Holly Matute 12/09/2022 2 [place] [facility] Holly Matute [id number] Holly Matute Notes Date Note Type Note [...] degrees. The knees are stable within those [id number]. The alignment of the right knee is {{varus* valgus neut ral}} . Muscle strength is normal. Pedal pulses are palpable. Hip examination, including flexion and internal rotation, was negative in that groin pain was not produced. Imaging:Radiographs of the right knee from August 2022 demonstrate degenerative joint disease with joint space narrowing, osteophyte formation, and subchondral sclerosis. Gyci-pp-bgdh articulation in the medial compartment. Assessment/Plan? ? [...] can follow-up as needed. Arpan Crockett MD [address] [place] [address], [place], [address], [place] [facility] 12/09/2022 09:35:33 OBGyn Episode No OBEpisode recorded.
== END 2024-09-24 15:16 | disposition home or self-care (01) ==
LOC: HO.HOSX 15:15
PROVIDERS: Visit Provider Orthopaedic Surgery
DX: Z96.651 Presence of right artificial knee joint (principal); Z96.652 Presence of left artificial knee joint
CPT/HCPCS: 73562; 99212